=== PATIENT | male | born 1965 | race Caucasian/White ===

== ENCOUNTER 2018-04-18 13:18 | Emergency (ER) | payer MEDICAID, SELFPAY ==
[2018-04-18] VITALS (69 sets, daily range): BP systolic 90–168; BP diastolic 50–116; PULSE 73–100; RESP 11–23; TEMP 37.4; O2SAT 85–98
[2018-04-18] MEDS: MORPHine 10 MG/ML VIAL (13:32)
--- NOTE | 2018-04-18 13:35 | W.ED.GENAD ---
Discharge Plan Disposition Patient Disposition: HOME Condition: Stable Discharge Details Chief Complaint: Chest Pain Clinical Impression: Headache, Back pain, Extremity pain, Chest pain Primary Care Provider: Benitez Dave ED Provider: Leonarda Villegas Home Meds and New Rx's Prescriptions: Continued atorvastatin [Lipitor] 20 MG tablet 20 mg PO .QHS RF: 0 clopidogrel [Plavix] 75 MG tablet 75 mg PO DAILY RF: 0 aspirin [Aspir-81] 81 MG tablet,delayed release (DR/EC) 162 mg PO DAILY RF: 0 citalopram 20 MG tablet 20 mg PO .QHS RF: 0 omeprazole 20 MG capsule,delayed release(DR/EC) 20 mg PO QAM RF: 0 fluticasone [Flovent HFA] 120 PUFF HFA aerosol inhaler 1 puff Inhalation BID RF: 0 metoprolol succinate 25 MG tablet extended release 24 hr 25 mg PO BID RF: 0 albuterol sulfate [ProAir RespiClick] 90 MCG aerosol powdr breath activated 2 puff Inhalation .[id number] PRNRF: 0 metoprolol tartrate 25 MG tablet 25 mg PO BID RF: 0 Discharge Instructions Instructions: Chest Pain (ED), Back Pain (ED), General Headache (ED) Additional Instructions: Please return immediately to the emergency department if you develop any new or worsening symptoms or if you become otherwise concerned it is extremely important that you make an appointment to be seen in follow up by your primary care doctor within the next 48 hours in follow-up for this visit. Referrals: Benitez Dave [Primary Care Provider] - Discharge Data Discharge Date/Time-TO BE ENTERED AT DEPARTURE: 04/18/18 19:58 Medical Decision Making Meño Castro is a 52-year-old man with history of asthma, GERD, high cholesterol, coronary artery disease status post stents who presented to the emergency department complaining of sharp 10 out of 10 pain that began in his lower back, radiated up into his neck, also radiated to left knee and left wrist. Also with mild chest tightness and concurrent headache typical of his usual headaches. On exam patient appears uncomfortable and anxious but nontoxic. Benign cardiopulmonary exam. Benign neurologic exam. Patient with risk factors for vascular disease, this time concern for aortic pathology, ACS, metabolic/lyte derangement versus other. Doubt PE, SAH. Exam/history not consistent with sepsis, CVA. Plan for CTA brain neck, thorax/abdomen, EKG, screening labs, IV fluid, telemetry, IV pain medication. Will monitor. CTAs personally visualized by me, interpretation conjunction with radiology: CTA OF HEAD AND NECK: CT angiography was performed with multi slice acquisition and multi planar and 3D reconstruction. NECK: The exam is mildly limited by motion. There is mild calcific plaque at both common carotid bulbs. There is no significant internal carotid artery stenosis. The right vertebral artery is dominant. There is no evidence of dissection. IMPRESSION: Mild calcific plaque at the common carotid bulbs. HEAD: The [place] of [place] vasculature appears intact. No stenosis, dissection or occlusion is seen. There is no visible aneurysm. IMPRESSION: Negative CTA of the head. CT ANGIOGRAPHY OF THE CHEST, ABDOMEN AND PELVIS: CT angiography was performed with multi slice acquisition and multi planar and 3D reconstruction. There is no evidence of aneurysm or dissection. The pulmonary arteries are suboptimally opacified; however, no filling defects are seen. There are no pleural or pericardial effusions or evidence of a focal infiltrate or pulmonary edema. The liver shows fatty infiltration. The gallbladder, spleen, adrenals, pancreas and kidneys are unremarkable. There are bilateral renal cysts. The appendix appears normal. There is no bowel dilatation or inflammatory change. There is no free fluid. There is a small fatty-containing left inguinal hernia. The bladder is unremarkable. The prostate appears normal in size. IMPRESSION: No acute abnormality is seen in the chest, abdomen or pelvis. CTAs reported as negative. Pt feeling somewhat improved. Labs non-diagnostic. Given chest tightness and h/o CAD, plan for repeat trop and EKG. Pt denies current chest pain. Pt re-evaluated with his present, who reports that symptoms are not atypical for Pt. She reports that Pt has been having low back pain, neck pain, wrist and knee pain for months, and she is concerned that Pt may have had some worsening of his chronic pain symptoms and become anxious, prompting him to come to the ED. Pt agrees that he felt quite anxious, and his pain has subsided. Now only with mild low back pain that is at baseline for him and is positional lying in the bed. Pt's requests flu swab for generalized joint aches and body aches that pt has been complaining for past few days. Unclear etiology of symptoms at this time. Resolution of symptoms, patient is agreement that symptoms have been more long-standing and did not start suddenly this a.m., no persistent headache, chest tightness nonexertional, other emergent workup for ACS, subarachnoid hemorrhage not indicated. Will send flu. Flu neg. Repeat trop, EKG okay. Patient continues to report feeling rather well and ready for discharge. Lengthy discussion with Pt and with is re: RTED precautions, home care, and importance of outpt f/u [facility] with PCP. They verbalized understanding of the plan and are amenable. Medical Records Medical records reviewed: Yes I reviewed the patient's medical records. Lab Data Lab results reviewed: Yes I reviewed the patient's lab results. ECG Data Attestation: I personally reviewed and interpreted this ECG (s) as follows: Interpretation: EKG #1 shows sinus rhythm at 93, left bundle branch block, does not meet sgarbossa criteria for STEMI EKG #2 shows sinus rhythm at 77, left bundle branch block does not meet sgarbossa criteria for HPI General Mode of arrival: ambulatory. Date/Time Provider Initiated Documentation: 04/18/18 13:21. Limitations to Documentation: no limitations. Information obtained by: patient, RN notes reviewed and old records reviewed. HPI Narrative: Meño Castro is a 52-year-old man with history of CABG, high cholesterol, GERD, asthma presenting to the emergency department with multiple complaints. Patient reports that earlier today he was cooking when he developed sudden onset low back pain, radiating into his left knee. he reports that he rapidly then developed neck pain, which radiated into his left wrist. Patient reports that somewhat concurrent with these symptoms, he also developed a feeling of chest tightness and headache. He reports that he has been having frequent recurrent headaches over the past month, and this headache is typical in location, quality, and severity, does not feel abnormal for him. He believes the headache was gradual onset. Patient reports that while his headache is very typical for him, his other symptoms are not. Patient reports that after onset of pain initially, he had a cigarette, but pain has seemed to persist. He reports that pain in his left upper and lower extremity is intermittent and stabbing. He reports that low back pain and neck pain is worse with movement, and also intermittent but currently occurring. Chest pain has been constant. He denies numbness/tingling, weakness, nausea/vomiting/diarrhea, vision changes, fever, cough. Has been eating and drinking normally. No recent travel, no other recent illness. Patient does report that he stopped taking his Eliquis and metoprolol 1 week ago, as he did not have money to pay for those prescriptions. Pain level 10/10. Related Data Home Medications Medication Instructions Recorded Confirmed albuterol sulfate [ProAir 2 puff INHALATION .[id number] PRN 11/21/15 03/29/16 RespiClick] aspirin [Aspir-81] 162 mg PO DAILY 11/21/15 03/29/16 atorvastatin [Lipitor] 20 mg PO .QHS 11/21/15 03/29/16 citalopram 20 mg PO .QHS 11/21/15 03/29/16 clopidogrel [Plavix] 75 mg PO DAILY 11/21/15 03/29/16 fluticasone [Flovent HFA] 1 puff INHALATION BID 11/21/15 03/29/16 metoprolol succinate 25 mg PO BID 11/21/15 11/21/15 omeprazole 20 mg PO QAM 11/21/15 03/29/16 metoprolol tartrate 25 mg PO BID 03/29/16 03/29/16 Allergies Allergy/AdvReac Type Severity Reaction Status Date / Time No Known Allergies Allergy Unverified 03/29/16 09:36 General Stated Complaint: Chest Pain DARIELA: 2 Review of Systems Review of Systems Constitutional: denies fevers Eyes: denies eye pain ENT: denies facial pain, dental pain, sore throat Cardiovascular: Reports chest pain, denies edema Respiratory: denies cough, reports mild SOB GI: denies abdominal pain, vomiting, diarrhea : denies flank pain MSK: reports back pain, neck pain, left knee and wrist pain Skin: denies rash Neuro: Reports headaches, denies numbness, weakness PFSH Social History Smoking and Tabacco status: Former Tobacco Use Exam Narrative Exam Narrative: Constitutional: well and [id number], appears uncomfortable and in distress HENT: head atraumatic, normocephalic normal inspection, mucous membranes moist Eyes: conjunctiva normal, sclera normal, pupils 3mm b/l Neck: no stridor, does not range 2/2 pain, trachea midline Chest: normal inspection Resp: normal work of breathing, LCTAB Cardio: normal rate, normal rhythm, no murmur appreciated GI: abdomen soft, non-tender, non-distended Back: normal inspection, no rash, NTTP Skin: warm, dry, normal color, no rash Neuro: alert, not altered, cylinder devalver 2-12 intact, motor 5/5 throughout, normal tone Ext: no edema, left wrist and knee NTTP/ROM not limited by pain Psych: normal mood, normal affect, normal behavior Course Vital Signs Temperature 37.4 C 04/18/18 13:15 Pulse 94 H 04/18/18 13:15 Respiratory Rate 12 04/18/18 13:15 Blood Pressure 168/84 H 04/18/18 13:15 Pulse Oximetry 96 04/18/18 13:15 Temperature 37.4 C 04/18/18 13:15 Temperature Source Skin 04/18/18 13:15 Pulse 94 H 04/18/18 13:15 Respiratory Rate 16 04/18/18 13:25 Respiratory Effort 04/18/18 13:28 Blood Pressure 168/84 H 04/18/18 13:15 Pulse Oximetry 96 04/18/18 13:15 Oxygen Delivery Method Room Air 04/18/18 13:15 Oxygen Flow Rate 0 04/18/18 13:15 Pain Level 6 04/18/18 13:15
[2018-04-18] MEDS: Ondansetron 4 MG/2 ML VIAL (13:39)
[2018-04-18] MEDS: Normal Saline Flush 10 ML SYR IVP ×2 (13:41→17:20)
[2018-04-18 13:44] LABS: Abs Immature Grans 0.03 k/cumm (0.0-0.09); Absolute Basophil Count 0.02 k/cumm (0.0-0.2); Absolute Monocyte Count 0.53 k/cumm (0.11-0.7); Basophils % 0.1; HCT 42.9 % (40.0-50.0); Immature Grans % 0.2; Lymphocytes % 10.9; Mean Corpuscular Hemoglobin 32.5 pg (27.0-33.0); Mean Corpuscular Volume 93.1 fL (80-95); Mean Platelet Volume 9.2 fL (8.0-11.0); Monocytes % 3.4; Neutrophils % 84.4; Platelet Count 236 x1000/uL (130-400); RBC 4.61 m/cumm (4.50-6.00); RBC Distribution Width 12.3 % (11.8-14.1); White Blood Cell Count 15.53 k/cumm (4.4-10.8)
[2018-04-18 13:48] LABS: Absolute Eosinophil Count 0.16 k/cumm (0.0-0.7); Absolute Lymphocyte Count 1.69 k/cumm (1.2-3.4); Absolute Neutrophil Count 13.11 k/cumm (1.2-6.7)
--- NOTE | 2018-04-18 13:50 | DI.CT_ITS ---
SYMPTOM/DIAGNOSIS: HEADACHE, NECK PAIN CTA OF HEAD AND NECK: CT angiography was performed with multi slice acquisition and multi planar and 3D reconstruction. NECK: The exam is mildly limited by motion. There is mild calcific plaque at both common carotid bulbs. There is no significant internal carotid artery stenosis. The right vertebral artery is dominant. There is no evidence of dissection. IMPRESSION: Mild calcific plaque at the common carotid bulbs. HEAD: The [place] vasculature appears intact. No stenosis, dissection or occlusion is seen. There is no visible aneurysm. IMPRESSION: Negative CTA of the head.
[2018-04-18 13:59] LABS: ALT 40 U/L (12-78); AST 24 U/L (15-37); Albumin 3.9 g/dL (3.4-5.0); Alkaline Phosphatase 85 U/L (46-116); Anion Gap 11.4 mmol/L (3-11); BUN 12 mg/dL (7-18); Bilirubin, Total 0.5 mg/dL (0.2-1.0); CO2 26.6 mmol/L (21.0-32.0); CREATININE 1.04 mg/dL (0.70-1.30); Calcium 9.4 mg/dL (8.5-10.1); Chloride 101 mmol/L (98-107); Glucose 129 mg/dL (70-100); Magnesium 1.7 mg/dL (1.8-2.4); Potassium 3.6 mmol/L (3.5-5.1); Sodium 139 mmol/L (136-145); Total Protein 7.2 g/dL (6.4-8.2)
[2018-04-18 14:01] LABS: Troponin I < 0.02 ng/mL (0.00-0.06)
[2018-04-18] MEDS: Omnipaque 350 MG/ML 100 ML BTL 75 ML IJ ×2 (14:04→14:06)
--- NOTE | 2018-04-18 14:05 | DI.CT_ITS ---
SYMPTOMS/DIAGNOSIS: BACK PAIN, CHEST PAIN CT ANGIOGRAPHY OF THE CHEST, ABDOMEN AND PELVIS: CT angiography was performed with multi slice acquisition and multi planar and 3D reconstruction. There is no evidence of aneurysm or dissection. The pulmonary arteries are suboptimally opacified; however, no filling defects are seen. There are no pleural or pericardial effusions or evidence of a focal infiltrate or pulmonary edema. The liver shows fatty infiltration. The gallbladder, spleen, adrenals, pancreas and kidneys are unremarkable. There are bilateral renal cysts. The appendix appears normal. There is no bowel dilatation or inflammatory change. There is no free fluid. There is a small fatty-containing left inguinal hernia. The bladder is unremarkable. The prostate appears normal in size. IMPRESSION: No acute abnormality is seen in the chest, abdomen or pelvis.
--- NOTE | 2018-04-18 14:54 | DI.VRAD_ITS ---
EXAM: CT Angiography Head With Contrast EXAM DATE/TIME: 04/18/2018 1:25 PM CLINICAL HISTORY: 52 years old, male; Pain; Headache; Patient HX: Headache, and neck pain TECHNIQUE: Axial computed tomographic angiography images of the head with intravenous contrast using CT angiography protocol. MIP reconstructed images were created and reviewed. CONTRAST: 75 ml of omnipaque 350 administered intravenously. COMPARISON: No relevant prior studies available. FINDINGS: Right internal carotid artery: Unremarkable. Intracranial segment is patent with no significant stenosis. No aneurysm. Right anterior cerebral artery: Unremarkable. No occlusion or significant stenosis. No aneurysm. Right middle cerebral artery: Unremarkable. No occlusion or significant stenosis. No aneurysm. Right posterior cerebral artery: Unremarkable. No occlusion or significant stenosis. No aneurysm. Right vertebral artery: Unremarkable. No occlusion or significant stenosis. No aneurysm. Left internal carotid artery: Unremarkable. Intracranial segment is patent with no significant stenosis. No aneurysm. Left anterior cerebral artery: Unremarkable. No occlusion or significant stenosis. No aneurysm. Left middle cerebral artery: Unremarkable. No occlusion or significant stenosis. No aneurysm. Left posterior cerebral artery: Unremarkable. No occlusion or significant stenosis. No aneurysm. Left vertebral artery: Unremarkable. No occlusion or significant stenosis. No aneurysm. Basilar artery: Unremarkable. No occlusion or significant stenosis. No aneurysm. HEAD: Dental: The patient is edentulous. IMPRESSION: No evidence for acute intracranial vascular abnormality. EXAM: CT Angiography Neck With Contrast EXAM DATE/TIME: 04/18/2018 1:25 PM CLINICAL HISTORY: 52 years old, male; Pain; Headache; Patient HX: Headache, and neck pain TECHNIQUE: Axial computed tomographic angiography images of the neck with intravenous contrast using CT angiography protocol. All CT scans at this facility use at least one of these dose optimization techniques: automated exposure control; mA and/or kV adjustment per patient size (includes targeted exams where dose is matched to clinical indication); or iterative reconstruction. MIP reconstructed images were created and reviewed. COMPARISON: No relevant prior studies available. FINDINGS: VASCULATURE: Right common carotid artery: Normal. No significant stenosis. No dissection or occlusion. Right internal carotid artery: There is mild medial ectasia of the right ICA. Right external carotid artery: Normal. No occlusion or significant stenosis. Right vertebral artery: Right vertebral artery dominant. The distal left vertebral artery is atretic. Left common carotid artery: Normal. No significant stenosis. No dissection or occlusion. Left internal carotid artery: Minimal plaque proximal left ICA. Left external carotid artery: Normal. No occlusion or significant stenosis. Left vertebral artery: See Right Vertebral Artery Finding. Other vasculature: Respiratory motion slightly limits the exam. NECK: Bones/joints: Status post median sternotomy. Soft tissues: Normal. No significant soft tissue swelling. IMPRESSION: No evidence for hemodynamically significant stenosis. Distal left vertebral artery is atretic, anatomic variant. COMMENT: Preliminary interpretation is based on receipt of 440 image(s). A final report will be issued subsequently. Reference per NASCET criteria for degree of stenosis: Mild: <50% stenosis. Moderate: 50-69% stenosis. Severe: 70-94% stenosis. Near occlusion: 95-99% stenosis. Dictated and Authenticated by: Lupe Savage MD. Ordering:OLGA Brower MD
--- NOTE | 2018-04-18 14:56 | DI.VRAD_ITS ---
EXAM: CT Angiography Chest With Contrast EXAM DATE/TIME: 04/18/2018 1:24 PM CLINICAL HISTORY: 52 years old, male; Pain; Other: Back pain and chest pain. ; Abdominal pain; Other: Back pain. ; Patient HX: Back pain and neck pain. Patient sts with contrast injection did not feel contrast going down right leg. TECHNIQUE: Axial computed tomographic angiography images of the chest with intravenous contrast using CT angiography protocol. All CT scans at this facility use at least one of these dose optimization techniques: automated exposure control; mA and/or kV adjustment per patient size (includes targeted exams where dose is matched to clinical indication); or iterative reconstruction. MIP reconstructed images were created and reviewed. CONTRAST: 75 ml of omnipaque 350 administered intravenously. COMPARISON: No relevant prior studies available. FINDINGS: Pulmonary arteries: Normal. No pulmonary emboli. Aorta: Normal. No aortic aneurysm. No aortic dissection. Lungs: There is mild bibasilar atelectasis. Pleural space: Normal. No pneumothorax. No pleural effusion. Heart: Normal. No cardiomegaly. No pericardial effusion. Lymph nodes: Unremarkable. No enlarged lymph nodes. Bones/joints: Status post median sternotomy. Soft tissues: Unremarkable. IMPRESSION: No evidence for pulmonary embolus. EXAM: CT Angiography Abdomen and Pelvis With Contrast EXAM DATE/TIME: 04/18/2018 1:24 PM CLINICAL HISTORY: 52 years old, male; Pain; Other: Back pain and chest pain. ; Abdominal pain; Other: Back pain. ; Patient HX: Back pain and neck pain. Patient sts with contrast injection did not feel contrast going down right leg. TECHNIQUE: Axial computed tomographic angiography images of the abdomen and pelvis with intravenous contrast material, including non-contrast images if performed. MIP and/or 3D reconstructed images were created and reviewed. All CT scans at this facility use at least one of these dose optimization techniques: automated exposure control; mA and/or kV adjustment per patient size (includes targeted exams where dose is matched to clinical indication); or iterative reconstruction. COMPARISON: No relevant prior studies available. FINDINGS: VASCULATURE: Aorta: There is infrarenal abdominal aortic ectasia. Maximum diameter 2.8 cm. Celiac trunk and mesenteric arteries: No occlusion or significant stenosis. Renal arteries: No occlusion or significant stenosis. Right iliac arteries: No occlusion or significant stenosis. Right femoral/popliteal arteries: No occlusion or significant stenosis of the imaged proximal femoral artery. The popliteal artery was not imaged. Left iliac arteries: No occlusion or significant stenosis. Left femoral/popliteal arteries: No occlusion or significant stenosis of the imaged proximal femoral artery. The popliteal artery was not imaged. ABDOMEN: Liver: Fatty, slightly enlarged liver. Gallbladder and bile ducts: Gallbladder incompletely distended. Pancreas: Unremarkable. No mass. No ductal dilation. Spleen: Heterogeneous splenic enhancement noted consistent with dynamic bolus. Adrenals: Unremarkable. No mass. Kidneys and ureters: Left renal cyst. Stomach and bowel: Unremarkable. No obstruction. No mucosal thickening. Appendix: No evidence of appendicitis. PELVIS: Bladder: Unremarkable. No mass. Reproductive: Unremarkable as visualized. ABDOMEN and PELVIS: Intraperitoneal space: Unremarkable. No free air. No significant fluid collection. Bones/joints: No acute fracture. No dislocation. Soft tissues: Small, fat-containing left inguinal hernia. Lymph nodes: Unremarkable. No enlarged lymph nodes. IMPRESSION: No evidence for acute abnormality. Mild aortic ectasia. COMMENT: Preliminary interpretation is based on receipt of [id number] image(s). A final report will be issued subsequently. Dictated and Authenticated by: Lupe Savage MD. Ordering:OLGA Brower MD
[2018-04-18] MEDS: Normal Saline 500 ML IV (17:18)
--- NOTE | 2018-04-18 17:18 | ED.GENADUL_ITS ---
Discharge Plan Disposition Patient Disposition: HOME Condition: Stable Discharge Details Chief Complaint: Chest Pain Clinical Impression: Headache, Back pain, Extremity pain, Chest pain Primary Care Provider: Benitez Dave ED Provider: Leonarda Villegas Home Meds and New Rx's Prescriptions: Continued atorvastatin [Lipitor] 20 MG tablet 20 mg PO .QHS RF: 0 clopidogrel [Plavix] 75 MG tablet 75 mg PO DAILY RF: 0 aspirin [Aspir-81] 81 MG tablet,delayed release (DR/EC) 162 mg PO DAILY RF: 0 citalopram 20 MG tablet 20 mg PO .QHS RF: 0 omeprazole 20 MG capsule,delayed release(DR/EC) 20 mg PO QAM RF: 0 fluticasone [Flovent HFA] 120 PUFF HFA aerosol inhaler 1 puff Inhalation BID RF: 0 metoprolol succinate 25 MG tablet extended release 24 hr 25 mg PO BID RF: 0 albuterol sulfate [ProAir RespiClick] 90 MCG aerosol powdr breath activated 2 puff Inhalation .[id number] PRNRF: 0 metoprolol tartrate 25 MG tablet 25 mg PO BID RF: 0 Discharge Instructions Instructions: Chest Pain (ED), Back Pain (ED), General Headache (ED) Additional Instructions: Please return immediately to the emergency department if you develop any new or worsening symptoms or if you become otherwise concerned it is extremely important that you make an appointment to be seen in follow up by your primary care doctor within the next 48 hours in follow-up for this visit. Referrals: Benitez Dave [Primary Care Provider] - Discharge Data Discharge Date/Time-TO BE ENTERED AT DEPARTURE: 04/18/18 19:58 Medical Decision Making Meño Castro is a 52-year-old man with history of asthma, GERD, high cholesterol, coronary artery disease status post stents who presented to the emergency department complaining of sharp 10 out of 10 pain that began in his lower back, radiated up into his neck, also radiated to left knee and left wrist. Also with mild chest tightness and concurrent headache typical of his usual headaches. On exam patient appears uncomfortable and anxious but nontoxic. Benign cardiopulmonary exam. Benign neurologic exam. Patient with risk factors for vascular disease, this time concern for aortic pathology, ACS, metabolic/lyte derangement versus other. Doubt PE, SAH. Exam/history not consistent with sepsis, CVA. Plan for CTA brain neck, thorax/abdomen, EKG, screening labs, IV fluid, telemetry, IV pain medication. Will monitor. CTAs personally visualized by me, interpretation conjunction with radiology: CTA OF HEAD AND NECK: CT angiography was performed with multi slice acquisition and multi planar and 3D reconstruction. NECK: The exam is mildly limited by motion. There is mild calcific plaque at both common carotid bulbs. There is no significant internal carotid artery stenosis. The right vertebral artery is dominant. There is no evidence of dissection. IMPRESSION: Mild calcific plaque at the common carotid bulbs. HEAD: The [place] vasculature appears intact. No stenosis, dissection or occlusion is seen. There is no visible aneurysm. IMPRESSION: Negative CTA of the head. CT ANGIOGRAPHY OF THE CHEST, ABDOMEN AND PELVIS: CT angiography was performed with multi slice acquisition and multi planar and 3D reconstruction. There is no evidence of aneurysm or dissection. The pulmonary arteries are suboptimally opacified; however, no filling defects are seen. There are no pleural or pericardial effusions or evidence of a focal infiltrate or pulmonary edema. The liver shows fatty infiltration. The gallbladder, spleen, adrenals, pancreas and kidneys are unremarkable. There are bilateral renal cysts. The ap pendix appears normal. There is no bowel dilatation or inflammatory change. There is no free fluid. There is a small fatty-containing left inguinal hernia. The bladder is unremarkable. The prostate appears normal in size. IMPRESSION: No acute abnormality is seen in the chest, abdomen or pelvis. CTAs reported as negative. Pt feeling somewhat improved. Labs non-diagnostic. Given chest tightness and h/o CAD, plan for repeat trop and EKG. Pt denies current chest pain. Pt re-evaluated with his present, who reports that symptoms are not atypical for Pt. She reports that Pt has been having low back pain, neck pain, wrist and knee pain for months, and she is concerned that Pt may have had some worsening of his chronic pain symptoms and become anxious, prompting him to come to the ED. Pt agrees that he felt quite anxious, and his pain has subsided. Now only with mild low back pain that is at baseline for him and is positional lying in the bed. Pt's requests flu swab for generalized joint aches and body aches that pt has been complaining for past few days. Unclear etiology of symptoms at this time. Resolution of symptoms, patient is agreement that symptoms have been more long-standing and did not start suddenly this a.m., no persistent headache, chest tightness nonexertional, other emergent workup for ACS, subarachnoid hemorrhage not indicated. Will send flu. Flu neg. Repeat trop, EKG okay. Patient continues to report feeling rather well and ready for discharge. Lengthy discussion with Pt and with is re: RTED precautions, home care, and importance of outpt f/u [facility] with PCP. They verbalized understanding of the plan and are amenable. Medical Records Medical records reviewed: Yes I reviewed the patient's medical records. Lab Data Lab results reviewed: Yes I reviewed the patient's lab results. ECG Data Attestation: I personally reviewed and interpreted this ECG (s) as follows: Interpretation: EKG #1 shows sinus rhythm at 93, left bundle branch block, does not meet sgarbossa criteria for STEMI EKG #2 shows sinus rhythm at 77, left bundle branch block does not meet sgarbossa criteria for HPI General Mode of arrival: ambulatory . Date/Time Provider Initiated Documentation: 04/18/18 13:21 . Limitations to Documentation: no limitations . Information obtained by: patient, RN notes reviewed and old records reviewed . HPI Narrative: Meño Castro is a 52-year-old man with history of CABG, high cholesterol, GERD, asthma presenting to the emergency department with multiple complaints. Patient reports that earlier today he was cooking when he developed sudden onset low back pain, radiating into his left knee. he reports that he rapidly then developed neck pain, which radiated into his left wrist. Patient reports that somewhat concurrent with these symptoms, he also developed a feeling of chest tightness and headache. He reports that he has been having frequent recurrent headaches over the past month, and this headache is typical in location, quality, and severity, does not feel abnormal for him. He believes the headache was gradual onset. Patient reports that while his headache is very typical for him, his other symptoms are not. Patient reports that after onset of pain initially, he had a cigarette, but pain has seemed to persist. He reports that pain in his left upper and lower extremity is intermittent and stabbing. He reports that low back pain and neck pain is worse with movement, and also intermittent but currently occurring. Chest pain has been constant. He denies numbness/tingling, weakness, nausea/vomiting/diarrhea, vision changes, fever, cough. Has been eating and drinking normally. No recent travel, no other recent illness. Patient does report that he stopped taking his Eliquis and metoprolol 1 week ago, as he did not have money to pay for those prescriptions. Pain level 10/10. Related Data Home Medications Medication Instructions Recorded Confirmed albuterol sulfate [ProAir 2 puff INHALATION .[id number] PRN 11/21/15 03/29/16 RespiClick] aspirin [Aspir-81] 162 mg PO DAILY 11/21/15 03/29/16 atorvastatin [Lipitor] 20 mg PO .QHS 11/21/15 03/29/16 citalopram 20 mg PO .QHS 11/21/15 03/29/16 clopidogrel [Plavix] 75 mg PO DAILY 11/21/15 03/29/16 fluticasone [Flovent HFA] 1 puff INHALATION BID 11/21/15 03/29/16 metoprolol succinate 25 mg PO BID 11/21/15 11/21/15 omeprazole 20 mg PO QAM 11/21/15 03/29/16 metoprolol tartrate 25 mg PO BID 03/29/16 03/29/16 Allergies Allergy/AdvReac Type Severity Reaction Status Date / Time No Known Allergies Allergy Unverified 03/29/16 09:36 General Stated Complaint: Chest Pain DARIELA: 2 Review of Systems Review of Systems Constitutional: denies fevers Eyes: denies eye pain ENT: denies facial pain, dental pain, sore throat Cardiovascular: Reports chest pain, denies edema Respiratory: denies cough, reports mild SOB GI: denies abdominal pain, vomiting, diarrhea : denies flank pain MSK: reports back pain, neck pain, left knee and wrist pain Skin: denies rash Neuro: Reports headaches, denies numbness, weakness PFSH Social History Smoking and Tabacco status: Former Tobacco Use Exam Narrative Exam Narrative: Constitutional: well and [id number], appears uncomfortable and in distress HENT: head atraumatic, normocephalic normal inspection, mucous membranes moist Eyes: conjunctiva normal, sclera normal, pupils 3mm b/l Neck: no stridor, does not range 2/2 pain, trachea midline Chest: normal inspection Resp: normal work of breathing, LCTAB Cardio: normal rate, normal rhythm, no murmur appreciated GI: abdomen soft, non-tender, non-distended Back: normal inspection, no rash, NTTP Skin: warm, dry, normal color, no rash Neuro: alert, not altered, trade mark attorney 2-12 intact, motor 5/5 throughout, normal tone Ext: no edema, left wrist and knee NTTP/ROM not limited by pain Psych: normal mood, normal affect, normal behavior Course Vital Signs Temperature 37.4 C 04/18/18 13:15 Pulse 94 H 04/18/18 13:15 Respiratory Rate 12 04/18/18 13:15 Blood Pressure 168/84 H 04/18/18 13:15 Pulse Oximetry 96 04/18/18 13:15 Temperature 37.4 C 04/18/18 13:15 Temperature Source Skin 04/18/18 13:15 Pulse 94 H 04/18/18 13:15 Respiratory Rate 16 04/18/18 13:25 Respiratory Effort 04/18/18 13:28 Blood Pressure 168/84 H 04/18/18 13:15 Pulse Oximetry 96 04/18/18 13:15 Oxygen Delivery Method Room Air 04/18/18 13:15 Oxygen Flow Rate 0 04/18/18 13:15 Pain Level 6 04/18/18 13:15
[2018-04-18] MEDS: diphenhydrAMINE 50 MG/ML VIAL 25 MG IVP (17:19)
[2018-04-18] MEDS: Prochlorperazine 10 MG/2 ML VIAL IVP (17:19)
[2018-04-18 18:16] LABS: Troponin I < 0.02 ng/mL (0.00-0.06)
== END 2018-04-18 19:58 | disposition home or self-care (01) ==
PROVIDERS: Emergency Provider Student in an Organized Health Care Education/Training Program; PCP Family Medicine
DX: M54.5 Low back pain (principal); M54.2 Cervicalgia; R51 Headache; R07.9 Chest pain, unspecified
CPT/HCPCS: 36415; 70496; 70498; 71275; 74177; 80053; 87449; 93005; 96361; 96374; 96375; 99285; 83735; 84484; 85025; 93010; 99284; J0780; J1200; J2270; J2405; J3490

== ENCOUNTER 2019-11-25 13:48 | Emergency (ER) | payer MEDICAID, SELFPAY ==
[2019-11-25 13:57] VITALS: BP 142/83; PULSE 95; RESP 16; TEMP 36.8; O2SAT 94
--- NOTE | 2019-11-25 14:00 | DI.CT_ITS ---
EXAM: CT HEAD WO CLINICAL HISTORY: pain s/p fall. TECHNIQUE: Imaging Protocol: Axial computed tomography images with coronal and sagittal reformatted images were created and reviewed COMPARISON: No exams were available for comparison FINDINGS: Ventricles and Extra axial spaces: Normal in size and morphology for the patient's age. Hemorrhage: None. Cerebral parenchyma: Normal. Midline shift: None. Brainstem/Cerebellum: Normal. Calvarium: Normal. Visualized Paranasal sinuses/Mastoids: Clear. Soft Tissues: Unremarkable. IMPRESSION: No acute intracranial process. RADIATION DOSE DELIVERED: Total DLP DATA REPOSITORY: All CT scans at this facility are submitted to the National Radiology Data Registry (NRDR) Dose Index Registry (DIR) with the [employer] (ACR). RADIATION OPTIMIZATION: All CT scans at this facility use at least one of these dose optimization te chniques: automated exposure control; mA and/or kV adjustment per patient size (includes targeted exa ms where dose is matched to clinical indication); or iterative reconstruction.
--- NOTE | 2019-11-25 14:15 | ED.GENADUL_ITS ---
Discharge Plan Disposition Patient Disposition: HOME Condition: Stable Discharge Details Clinical Impression: Contusion of right shoulder, Head injury Primary Care Provider: Dary Amaya ED Provider: Brennon Rasmussen Home Meds and New Rx's Prescriptions: Continued atorvastatin [Lipitor] 20 MG tablet 20 mg PO .QHS RF: 0 citalopram 20 MG tablet 20 mg PO .QHS RF: 0 omeprazole 20 MG capsule,delayed release(DR/EC) 20 mg PO QAM RF: 0 Flovent HFA 120 PUFF HFA aerosol inhaler 1 puff Inhalation BID RF: 0 albuterol sulfate [ProAir RespiClick] 90 MCG aerosol powdr breath activated 2 puff Inhalation .[id number] PRNRF: 0 metoprolol tartrate 25 MG tablet 25 mg PO BID RF: 0 diltiazem HCl 30 mg tablet 30 mg PO DAILY RF: 0 duloxetine 30 mg capsule,delayed release(DR/EC) PO DAILY RF: 0 Eliquis 5 mg tablet PO BID RF: 0 lisinopril 10 mg tablet 10 mg PO DAILY RF: 0 folic acid 1 mg tablet 1 mg PO DAILY RF: 0 gabapentin 100 mg capsule 200 mg PO DAILY RF: 0 oxycodone 5 mg tablet 5 mg PO DIRECTED PRNRF: 0 Discharge Instructions Additional Instructions: your xray did not show any broken bones and your replaced joint is well aligned follow up with your surgeon as scheduled if you have severe worsening pain, difficulty breathing or feel more ill return to the emergency department Medical Decision Making 54 yo male with hx of afib on eliquis, cad s/p cabg, who 8 days ago at [facility] underwent right shoulder replacement comes in after earlier today sat on a plastic chair at a [facility] [employer] [facility] [employer] and a leg snapped on the chair and he fell on his right shoulder on the groud and hit his head on a car. Denies loc, no chest pain.pressure, no dyspnea, no abdominal pain. HAs no neck pain with full rom and no midline neck pain. HAs pain in proximal right shoulder without erythema or warmth, intact distal sensation and pulses. Suspect contusion of the shoulder but will xray to evaluate for fx/dislocation. Given he has a headache and is on eliquis will also obtain ct of his head. xray shows no dislocation or fracture, has a small fracture of old clavicle screws, ct head negative. No new pain and only has tenderness with palpation of the shoulder, suspect contusion, will d/c home with return precautions Differential Diagnosis Differential Diagnosis: contusion, tbi, fracture Imaging Data Radiologic Study: Attestation: I personally reviewed and interpreted this imaging study as follows: Imaging: X-Ray Radiologist's impression: There are 2 screws seen in the acromion which appear to extend across an os acromiale. There is a fracture of 1 of the screws, of indeterminate age. No [place] fracture is seen.. There is mild spurring of the AC joint. The patient is status post placement of a right total shoulder prosthesis. The components appear well aligned. There is small amount of residual air over the surgical site. There is no evidence of an acute fracture. Radiologic Study #2: Attestation: I personally reviewed and interpreted this imaging study as follows: Imaging: CT Scan Radiologist's impression: ct head negative HPI General Mode of arrival: ambulatory . Date/Time Provider Initiated Documentation: 11/25/19 13:49 . Limitations to Documentation: no limitations . Information obtained by: patient . History of Present Illness 54 year old M presents to the emergency department with the chief complaint of right shoulder pain, and it has been constant. Rest improves symptom(s), Movement worsens symptoms . Patient did receive the following treatments prior to arrival, none Related Data Home Medications Medication Instructions Recorded Confirmed Flovent HFA 1 puff INHALATION BID 11/21/15 11/25/19 albuterol sulfate [ProAir 2 puff INHALATION .[id number] PRN 11/21/15 03/29/16 RespiClick] atorvastatin [Lipitor] 20 mg PO .QHS 11/21/15 11/25/19 citalopram 20 mg PO .QHS 11/21/15 03/29/16 omeprazole 20 mg PO QAM 11/21/15 11/25/19 metoprolol tartrate 25 mg PO BID 03/29/16 11/25/19 Eliquis mg PO BID 11/25/19 diltiazem HCl 30 mg PO DAILY 11/25/19 11/25/19 duloxetine mg PO DAILY 11/25/19 folic acid 1 mg PO DAILY 11/25/19 11/25/19 gabapentin 200 mg PO DAILY 11/25/19 11/25/19 lisinopril 10 mg PO DAILY 11/25/19 11/25/19 oxycodone 5 mg PO DIRECTED PRN 11/25/19 11/25/19 Allergies Allergy/AdvReac Type Severity Reaction Status Date / Time No Known Allergies Allergy Unverified 11/25/19 14:03 General Stated Complaint: Orthopedic DARIELA: 3 Review of Systems All systems reviewed & are unremarkable except as noted in HPI and below Constitutional Constitutional: Denies chills, Denies fever(s) and Denies weakness Cardiovascular Cardiovascular: Denies chest pain and Denies dyspnea Respiratory Respiratory: Denies cough and Denies dyspnea Gastrointestinal Gastrointestinal: Denies abdominal pain, Denies nausea and Denies vomiting Musculoskeletal Musculoskeletal: Denies joint swelling Neurologic Neurologic: Denies weakness [facility] Social History Smoking/Tobacco Use Status: Former Tobacco Use Alcohol Intake: current Alcohol Intake frequency: holidays/special occasions only Drug use: Never Substance use type: does not use Do you feel safe at home: Yes Do you feel safe in your relationship?: Yes Exam Const General: no acute distress Orientation: alert HENMT Head: normal to inspection Ears: external ears normal General nose exam: external nose normal Mouth: moist mucous membranes Eyes General: appearance normal, both eyes and all related structures Neck Neck: normal visual inspection Resp Effort & Inspection: normal respiratory effort and able to speak in complete sentences Cardio Rate: regular rate Skin General skin exam: elasticity normal Neuro General: patient alert and patient oriented x3 Extrem General: normal to inspection Psych Mental Status: mental status grossly normal Course Vital Signs Vital signs: Vital Signs Temperature 36.8 C 11/25/19 13:57 Pulse 95 H 11/25/19 13:57 Respiratory Rate 16 11/25/19 13:57 Blood Pressure 142/83 H 11/25/19 13:57 Pulse Oximetry 94 L 11/25/19 13:57 Temperature 36.8 C 11/25/19 13:57 Temperature Source Tympanic 11/25/19 13:57 Pulse 95 H 11/25/19 13:57 Respiratory Rate 16 11/25/19 13:57 Respiratory Effort Non-Labored 11/25/19 13:57 Blood Pressure 142/83 H 11/25/19 13:57 Blood Pressure Position Sitting 11/25/19 13:57 Pulse Oximetry 94 L 11/25/19 13:57 Oxygen Delivery Method Room Air 11/25/19 13:57 Oxygen Flow Rate 0 11/25/19 13:57 Pain Level 9 11/25/19 13:57
--- NOTE | 2019-11-25 14:56 | DI.RAD_ITS ---
EXAM: XR SHOULDER RT COMPLETE 2+V INDICATION: pain s/p fall, 8 days post op replacement. COMPARISON: None TECHNIQUE: 2D digital imaging was performed. FINDINGS: There are 2 screws seen in the acromion which appear to extend across an os acromiale. There is a fr acture of 1 of the screws, of indeterminate age. No [place] fracture is seen.. There is mild spur ring of the AC joint. The patient is status post placement of a right total shoulder prosthesis. Th e components appear well aligned. There is small amount of residual air over the surgical site. The re is no evidence of an acute fracture. DATA REPOSITORY: RADIATION DOSE DELIVERED:
[2019-11-25 15:56] VITALS: BP 155/82; PULSE 91; RESP 15; TEMP 36.6; O2SAT 97
== END 2019-11-25 15:51 | disposition home or self-care (01) ==
PROVIDERS: Emergency Provider Emergency Medicine; PCP Nurse Practitioner Family
DX: S40.011A Contusion of right shoulder, initial encounter (principal); S09.8XXA Other specified injuries of head, initial encounter; W07.XXXA Fall from chair, initial encounter; Z47.1 Aftercare following joint replacement surgery; Z96.611 Presence of right artificial shoulder joint; Z79.01 Long term (current) use of anticoagulants; I48.91 Unspecified atrial fibrillation
CPT/HCPCS: 99284; 70450; 73030

== ENCOUNTER 2020-10-29 11:40 | Emergency (ER) | payer MEDICAID, SELFPAY ==
[2020-10-29 11:45] VITALS: BP 158/94; PULSE 90; RESP 18; TEMP 36.5; O2SAT 97
--- NOTE | 2020-10-29 11:56 | W.ED.GENAD ---
Discharge Plan Disposition Patient Disposition: HOME Condition: Stable Discharge Details Clinical Impression: Sinusitis Primary Care Provider: Dary Amaya ED Provider: Brennon Rasmussen [place] Meds and New Rx's Prescriptions: New amoxicillin-pot clavulanate [Augmentin] 875-125 mg tablet 1 tab PO BID Qty: 14 RF: 0 Continued atorvastatin [Lipitor] 20 MG tablet 20 mg PO .QHS RF: 0 citalopram 20 MG tablet 20 mg PO .QHS RF: 0 omeprazole 20 MG capsule,delayed release(DR/EC) 20 mg PO QAM RF: 0 Flovent HFA 120 PUFF HFA aerosol inhaler 1 puff Inhalation BID RF: 0 ProAir RespiClick 90 MCG aerosol powdr breath activated 2 puff Inhalation .[id number] PRNRF: 0 metoprolol tartrate 25 MG tablet 25 mg PO BID RF: 0 diltiazem HCl 30 mg tablet 30 mg PO DAILY RF: 0 duloxetine 30 mg capsule,delayed release(DR/EC) 30 mg PO DAILY RF: 0 Eliquis 5 mg tablet 5 mg PO BID RF: 0 lisinopril 10 mg tablet 10 mg PO DAILY RF: 0 folic acid 1 mg tablet 1 mg PO DAILY RF: 0 gabapentin 100 mg capsule 200 mg PO DAILY RF: 0 oxycodone 5 mg tablet 5 mg PO DIRECTED PRNRF: 0 Discharge Instructions Instructions: Sinusitis (ED) Additional Instructions: you can try taking claritin or zyrtec in the morning and benadryl at bedtime as well if symptoms continue in a week follow up with your primary care provider return to the emergency department if you feel more ill, have difficulty breathing or inability to swallow liquids Medical Decision Making 55 yo male comes in with 10 days of sore throat as well as sinus congestion and pressure. HE denies fevers, chills, dyspnea, or difficulty swallowing and states he has been vaccinated for covid. He arrives speaking in full sentences and appears well. Has normal posterior pharynx, midline uvula, no submandibular swelling, pain over the hyoid or restricted neck movements, no findings on exam to suggest retropharyngeal abscess, epiglotitis, or peritonsilar abscess. He does have pain with percussion over the sinuses. I suspect sinusitis, given 10 days of symptoms will start augmentin and advised to try antihistamines. Advised to f/u with pcp and return precautions given Differential Diagnosis Differential Diagnosis: sinusitis, pharyngitis HPI General Mode of arrival: ambulatory. Date/Time Provider Initiated Documentation: 10/29/20 11:50. Limitations to Documentation: no limitations. Information obtained by: patient. History of Present Illness 55 year old M presents to the emergency department with the chief complaint of sore throat, described as mild, Patient started experiencing this day(s) (10) and it has been constant. No relieving factors improve symptom(s), No exacerbating factors reported . Patient notes denies fever/chills. Patient did receive the following treatments prior to arrival, none Related Data Home Medications Medication Instructions Recorded Confirmed Flovent HFA 1 puff INHALATION BID 11/21/15 10/29/20 ProAir RespiClick 2 puff INHALATION .[id number] PRN 11/21/15 10/29/20 atorvastatin [Lipitor] 20 mg PO .QHS 11/21/15 10/29/20 citalopram 20 mg PO .QHS 11/21/15 10/29/20 omeprazole 20 mg PO QAM 11/21/15 10/29/20 metoprolol tartrate 25 mg PO BID 03/29/16 10/29/20 Eliquis 5 mg PO BID 11/25/19 10/29/20 diltiazem HCl 30 mg PO DAILY 11/25/19 10/29/20 duloxetine 30 mg PO DAILY 11/25/19 10/29/20 folic acid 1 mg PO DAILY 11/25/19 10/29/20 gabapentin 200 mg PO DAILY 11/25/19 10/29/20 lisinopril 10 mg PO DAILY 11/25/19 10/29/20 oxycodone 5 mg PO DIRECTED PRN 11/25/19 11/25/19 amoxicillin-pot clavulanate 1 tab PO BID #14 tab 10/29/20 [Augmentin] Previous Rx's Medication Instructions Recorded amoxicillin-pot clavulanate 1 tab PO BID #14 tab 10/29/20 [Augmentin] Allergies Allergy/AdvReac Type Severity Reaction Status Date / Time No Known Allergies Allergy Unverified 10/29/20 11:47 General Stated Complaint: Sorethroat DARIELA: 4 Review of Systems All systems reviewed & are unremarkable except as noted in HPI and below Constitutional Constitutional: Denies chills, Denies fever(s) and Denies weakness ENT Ears, Nose, Mouth, and Throat: Denies change in voice Cardiovascular Cardiovascular: Denies chest pain and Denies dyspnea Respiratory Respiratory: Denies cough and Denies dyspnea Gastrointestinal Gastrointestinal: Denies abdominal pain, Denies nausea and Denies vomiting Musculoskeletal Musculoskeletal: Denies joint swelling Neurologic Neurologic: Denies weakness [facility] Social History Smoking/Tobacco Use Status: Former Tobacco Use Smoking risk assessment performed?: Yes Alcohol Intake: current Alcohol Intake frequency: holidays/special occasions only Drug use: Never Substance use type: does not use Do you feel safe at home: Yes Do you feel safe in your relationship?: Yes Exam Const General: no acute distress Orientation: alert HENMT Head: normal to inspection Ears: external ears normal General nose exam: external nose normal Mouth: moist mucous membranes Eyes General: appearance normal, both eyes and all related structures Neck Neck: normal visual inspection Resp Effort & Inspection: normal respiratory effort and able to speak in complete sentences Cardio Rate: regular rate Skin General skin exam: no rashes or lesions noted Neuro General: patient alert and patient oriented x3 Extrem General: normal to inspection Psych Mental Status: mental status grossly normal Course Vital Signs Vital signs: Vital Signs Temperature 36.5 C 10/29/20 11:45 Pulse 90 10/29/20 11:45 Respiratory Rate 18 10/29/20 11:45 Blood Pressure 158/94 H 10/29/20 11:45 Pulse Oximetry 97 10/29/20 11:45 Temperature 36.5 C 10/29/20 11:45 Temperature Source Temporal Artery Scan 10/29/20 11:45 Pulse 90 10/29/20 11:45 Respiratory Rate 18 10/29/20 11:45 Respiratory Effort Non-Labored 10/29/20 11:51 Blood Pressure 158/94 H 10/29/20 11:45 Blood Pressure Position Sitting 10/29/20 11:45 Pulse Oximetry 97 10/29/20 11:45 Oxygen Delivery Method Room Air 10/29/20 11:45 Oxygen Flow Rate 0 10/29/20 11:45 Pain Level 8 10/29/20 11:45
== END 2020-10-29 12:03 | disposition home or self-care (01) ==
LOC: ER 12:06
PROVIDERS: Emergency Provider Emergency Medicine; PCP Nurse Practitioner Family
DX: J01.80 Other acute sinusitis (principal)
CPT/HCPCS: 99283

== ENCOUNTER 2021-04-23 16:27 | Emergency (ER) | payer MEDICAID, SELFPAY ==
--- NOTE | 2021-04-23 16:37 | ED.GENADUL_ITS ---
Discharge Plan Disposition Patient Disposition: HOME Condition: Stable Discharge Details Clinical Impression: Acute gout of knee Primary Care Provider: Dary Amaya ED Provider: Gwendolyn Ivy Home Meds and New Rx's Prescriptions: New prednisone 20 mg tablet 40 mg PO DAILY 4 Days Qty: 8 RF: 0 Continued atorvastatin [Lipitor] 20 MG tablet 20 mg PO .QHS RF: 0 citalopram 20 MG tablet 20 mg PO .QHS RF: 0 omeprazole 20 MG capsule,delayed release(DR/EC) 20 mg PO QAM RF: 0 Flovent HFA 120 PUFF HFA aerosol inhaler 1 puff Inhalation BID RF: 0 ProAir RespiClick 90 MCG aerosol powdr breath activated 2 puff Inhalation .[id number] PRNRF: 0 metoprolol tartrate 25 MG tablet 25 mg PO BID RF: 0 diltiazem HCl 30 mg tablet 30 mg PO DAILY RF: 0 duloxetine 30 mg capsule,delayed release(DR/EC) 30 mg PO DAILY RF: 0 Eliquis 5 mg tablet 5 mg PO BID RF: 0 lisinopril 10 mg tablet 10 mg PO DAILY RF: 0 folic acid 1 mg tablet 1 mg PO DAILY RF: 0 gabapentin 100 mg capsule 200 mg PO DAILY RF: 0 oxycodone 5 mg tablet 5 mg PO DIRECTED PRNRF: 0 amoxicillin-pot clavulanate [Augmentin] 875-125 mg tablet 1 tab PO BID Qty: 14 RF: 0 Discharge Instructions Instructions: Gout (ED) Additional Instructions: Your x-ray is reassuring here today. No evidence of fracture. However, your labs, history and exam point to gout flare of your right knee. To help with discomfort, please encourage rest, ice, elevation. You may use Tylenol to help with discomfort. Please take the steroids as prescribed to help with your gout flareup. This may elevate your sugars some. You are given a dose of prednisone today, your next dose will be tomorrow. As we discussed, to help prevent this in the future, please encourage frequent water intake. Please processed meats and cheeses- see attached information for more on dietary changes. Please see attached information on dietary changes to help prevent gout in the future. Please follow-up with your primary care in 1 week for reevaluation. If you develop fever/chills, increased pain, increased swelling or other new/worsening symptoms please seek care urgently once again. Referrals: Dary Amaya [Primary Care Provider] - Discharge Data Discharge Date/Time-TO BE ENTERED AT DEPARTURE: 04/23/21 18:12 Medical Decision Making Patient is a pleasant 57-year-old gentleman presenting to complaint of right knee pain. States that he was snowblowing on Friday but denies any pain or injury at that time. However, he will Friday morning with severe right knee pain. States the pain is primarily anterior. Has not had any fevers or chills. Again, no history of trauma. Has not had any surgery or injury to this historically. States that the pain has progressively been increasing and is having discomfort with ambulation and minimal activity such as his pant leg brushing against his knee. Past medical history for asthma, depression, GERD, HTN with obstruction, cardiac catheterization. Patient does report that he is anticoagulated. Denies any calf pain. Denies any sensory changes in his lower extremity. On exam, patient appears nontoxic. He is ambulated with an antalgic gait. He does appear very uncomfortable. I did not note any objective trauma. No erythema, effusion or warmth. Patient is exquisitely tender, even with light touch over the anterior aspect of his knee. Full flexion, extension does cause increased pain anteriorly but patient is able to do so. Ligametously intact with varus and valgus stress testing as well as anterior/posterior drawer testing. Diffusely tender along joint line anteriorly, maximal along patellar tendon. Calf is soft and nontender. No edema or palpable cord. 2+ distal pulses. 5/5 strength distally, full ROM of ankle. No thigh pain. Concerned primarily for tendonitis, particularly with location and onset after shoveling. However, he is so equistely tender and has predisposing factors for gout. This also came on over the night, pain with clothing touching the knee. Also considered crystal arthropathy. I do not see indication of septic arthritis at this time. No enlarged bursa. No signficant effusion. Will obtain XR to evaluate for any bony pathology as well as baseline blood work including uric acid and inflammatory markers. FINDINGS: Bones/joints: There is no evidence of acute fracture.There is no evidence of malalignment or dislocation. Soft tissues: Normal. IMPRESSION: There is no evidence of acute fracture.There is no evidence of malalignment or dislocation. Plan significant for elevated CRP 0.68. Uric acid is also elevated 0.3. ESR within normal limits, no leukocytosis. I discussed the findings with the patient. I advised that I am concerned for gout. On further medication, the patient found that he had very little fluid intake on Friday, day prior to the onset of symptoms. He also ate processed meat and cheeses for dinner. His further increases my concern for gout. Patient has history, will treat with steroids. Will do 40 mg p.o. daily. We discussed SE, in particular risk of eleation of glucose. Pt has hx of DM, not insulin dependent. I encourage hydration. We did discuss dietary changes prevent this in the future. Return precautions were discussed. Encourage close follow-up with primary care. We did discuss pain management. All questions and concerns were addressed and he is agreement with this plan. HPI General Mode of arrival: ambulatory . Date/Time Provider Initiated Documentation: 04/23/21 16:36 . Limitations to Documentation: no limitations . Information obtained by: patient and RN notes reviewed . History of Present Illness 55 year old M presents to the emergency department with the chief complaint of Right knee pain, described as severe, with intensity rated at 9. Quality is described as stabbing, and is localized to the right and lower extremity. Patient extremity (Reports he can radiate along tibia inferiorly). Patient started experiencing this day(s) and it has been constant. Immobilization improves symptom(s), Movement worsens symptoms . Patient notes no other symptoms.. Patient did receive the following treatments prior to arrival, none Related Data Home Medications Medication Instructions Recorded Confirmed Flovent HFA 1 puff INHALATION BID 11/21/15 10/29/20 ProAir RespiClick 2 puff INHALATION .[id number] PRN 11/21/15 10/29/20 atorvastatin [Lipitor] 20 mg PO .QHS 11/21/15 10/29/20 citalopram 20 mg PO .QHS 11/21/15 10/29/20 omeprazole 20 mg PO QAM 11/21/15 10/29/20 metoprolol tartrate 25 mg PO BID 03/29/16 10/29/20 Eliquis 5 mg PO BID 11/25/19 10/29/20 diltiazem HCl 30 mg PO DAILY 11/25/19 10/29/20 duloxetine 30 mg PO DAILY 11/25/19 10/29/20 folic acid 1 mg PO DAILY 11/25/19 10/29/20 gabapentin 200 mg PO DAILY 11/25/19 10/29/20 lisinopril 10 mg PO DAILY 11/25/19 10/29/20 oxycodone 5 mg PO DIRECTED PRN 11/25/19 11/25/19 amoxicillin-pot clavulanate 1 tab PO BID #14 tab 10/29/20 [Augmentin] prednisone 40 mg PO DAILY 4 Days #8 tab 04/23/21 Previous Rx's Medication Instructions Recorded amoxicillin-pot clavulanate 1 tab PO BID #14 tab 10/29/20 [Augmentin] prednisone 40 mg PO DAILY 4 Days #8 tab 04/23/21 Allergies Allergy/AdvReac Type Severity Reaction Status Date / Time No Known Allergies Allergy Unverified 10/29/20 11:47 General DARIELA: 4 Review of Systems Constitutional Constitutional: Reports as per HPI, Denies chills, Denies fever(s), Denies headache(s) and Denies weakness ENT Ears, Nose, Mouth, and Throat: Denies headache(s) Cardiovascular Cardiovascular: Reports as per HPI Respiratory Respiratory: Reports as per HPI and Denies cough Musculoskeletal Musculoskeletal: Reports as per HPI and Denies tingling Integumentary/Breasts Skin/Breast: Reports as per HPI, Denies rash and Denies wounds Neurologic Neurologic: Reports as per HPI, Denies headache(s), Denies tingling, Denies paresthesias and Denies weakness PFSH All Active Problems (Updated 04/23/21 @ 18:03 by BENITO Thomson) Sinusitis (Acute) Acute gout of knee (Acute) Social History Smoking/Tobacco Use Status: Former Tobacco Use Smoking risk assessment performed?: Yes Alcohol Intake: current Alcohol Intake frequency: holidays/special occasions only Drug use: Never Substance use type: does not use Do you feel safe at home: Yes Do you feel safe in your relationship?: Yes Exam Const General: cooperative, healthy appearing, uncomfortable, no acute distress, well developed and well groomed Nutritional Appearance: well nourished and obese Orientation: alert and awake Resp Effort & Inspection: normal respiratory effort, able to speak in complete sentences and no respiratory distress Cardio Rate: regular rate Rhythm: regular rhythm Skin General skin exam: no rashes or lesions noted Lesions: no lesions Rashes: no rashes Trauma: no lacerations or abrasions Neuro General: patient alert and patient awake Cognition: normal cognition Speech: speech normal Gait: antalgic Motor: muscle tone normal throughout Sensory Exam: no sensory deficits noted Extrem Knee images: 1. Area of maximal discomfort. Patient has difficulty with extension secondary to discomfort. Full flexion. 2+ distal pulses. Sensation is intact. Able to flex and extend ankle swelling and stiffness with no Psych Appearance: grossly normal and well kempt Mental Status: mental status grossly normal Speech and Movement: speech and movement normal
[2021-04-23 16:43] VITALS: BP 176/102; PULSE 98; RESP 18; TEMP 36.7; O2SAT 97
--- NOTE | 2021-04-23 16:45 | DI.RAD_ITS ---
Exam(s) XR KNEE RT 4V AP,LAT,JAKOB,PAT EXAM: XR KNEE RT 4V AP,LAT,JAKOB,PAT CLINICAL HISTORY: pain over patella and patellar tendon. TECHNIQUE: 2D digital imaging was performed of the right knee. Four views obtained. AP, lateral, Me rchant and PA tunnel views were obtained. COMPARISON: No exams were available for comparison FINDINGS: BONES: No acute fracture is present. No bony destructive lesion is seen. JOINTS: The knee is normally aligned. No joint effusion is seen. SOFT TISSUE: Normal. IMPRESSION: Unremarkable radiographs of the right knee. DATA REPOSITORY: RADIATION DOSE DELIVERED:
[2021-04-23] MEDS: Acetaminophen 500 MG TAB 1000 MG PO (17:14)
[2021-04-23 17:16] LABS: HCT 43.6 % (40.0-50.0); HGB 14.5 g/dL (13.5-17.5); MCH 32.6 pg (27.0-33.0); MCHC 33.3 % (32.0-36.0); MPV 8.7 fL (8.0-11.0); Platelet Count 226 10^3/uL (130-400); RBC 4.45 10^6/uL (4.36-5.78); RDW 12.2 % (11.8-14.1); RDW-SD 44.2 fL; WBC 9.06 10^3/uL (4.4-10.8)
[2021-04-23 17:18] LABS: ESR 11 mm/hr (0-20)
[2021-04-23 17:25] LABS: Anion Gap 12.1 mmol/L (3-11); BUN 12 mg/dL (7-18); CO2 25.9 mmol/L (21.0-32.0); CREATININE 1.1 mg/dL (0.70-1.30); Calcium 9.2 mg/dL (8.5-10.1); Chloride 104 mmol/L (98-107); Glucose 145 mg/dL (74-106); Potassium 3.9 mmol/L (3.5-5.1); Sodium 142 mmol/L (136-145)
[2021-04-23 17:28] LABS: C-Reactive Protein 0.68 mg/dL (0.0-0.3); Uric Acid 8.3 mg/dL (3.5-7.2)
--- NOTE | 2021-04-23 17:50 | DI.VRAD_ITS ---
PROCEDURE INFORMATION: Exam: XR Left Knee Exam date and time: 04/23/2021 4:51 PM Age: 55 years old Clinical indication: Patient HX: Right knee pain over patella and patella tendon, no trauma TECHNIQUE: Imaging protocol: XR Left knee. Views: 4 or more views. COMPARISON: No relevant prior studies available. FINDINGS: Bones/joints: There is no evidence of acute fracture.There is no evidence of malalignment or dislocation. Soft tissues: Normal. IMPRESSION: There is no evidence of acute fracture.There is no evidence of malalignment or dislocation. Dictated and Authenticated by: Sally Potts MD. Ordering:GABRIELLE Snow MD
[2021-04-23] MEDS: predniSONE 20 MG TAB 40 MG PO (18:09)
== END 2021-04-23 18:12 | disposition home or self-care (01) ==
PROVIDERS: Emergency Provider Physician Assistant; PCP Nurse Practitioner Family
DX: M10.061 Idiopathic gout, right knee (principal)
CPT/HCPCS: 80048; 85027; 85652; 99283; 73564; 84550; 86140; J7512

== ENCOUNTER 2021-06-26 22:47 | Outpatient (CLI) | payer MEDICAID, SELFPAY ==
--- NOTE | 2021-06-26 14:50 | DI.RAD_ITS ---
Exam(s) XR LUMBAR SPINE COMPLETE EXAM: XR LUMBAR SPINE COMPLETE CLINICAL HISTORY: ACUTE LBP, M54.59; MEDICATION MONITORING. TECHNIQUE: 2D digital imaging was performed of the lumbar spine. Five images were obtained. AP, la teral, right oblique, left oblique and L5-S1 spot views were obtained. COMPARISON: No exams were available for comparison FINDINGS: BONES: No fracture or destructive lesion. Endplate osteophytes are seen throughout the lumbar spine. Degenerative changes of the facets are seen from L3-4 through L5-S1. DISKS: There is disc space narrowing at L4-5 and L5-S1. ALIGNMENT: Lumbar spinal alignment is within normal limits. No spondylolysis or spondylolisthesis. SOFT TISSUE: Atherosclerosis is present. There does appear to be a 4 cm distal abdominal aortic aneu rysm. IMPRESSION: 1. [id number] degenerative changes in the lumbar spine. 2. Findings of a 4 cm distal abdominal aortic aneurysm. Abdominal ultrasound should be considered fo r further evaluation. DATA REPOSITORY: RADIATION DOSE DELIVERED:
--- NOTE | 2021-06-26 14:51 | DI.RAD_ITS ---
Exam(s) XR SACRUM EXAM: XR SACRUM CLINICAL HISTORY: ACUTE LBP, M54.59; MEDICATION MONITORING, Z51.81. TECHNIQUE: 2D digital imaging was performed. COMPARISON: No exams were available for comparison FINDINGS: BONES: No acute fracture is present. No bony destructive lesion is seen. JOINTS: No dislocation present. Mild degenerative changes are seen at the sacroiliac joints. SOFT TISSUE: Normal. IMPRESSION: Mild degenerative changes seen at the sacroiliac joints. DATA REPOSITORY: RADIATION DOSE DELIVERED:
== END 2021-06-26 23:07 ==
PROVIDERS: PCP Nurse Practitioner Family; Visit Provider Nurse Practitioner Family
DX: Z51.81 Encounter for therapeutic drug level monitoring (principal); M47.818 Spondylosis without myelopathy or radiculopathy, sacral and sacrococcygeal region; M47.816 Spondylosis without myelopathy or radiculopathy, lumbar region; I71.4 Abdominal aortic aneurysm, without rupture
CPT/HCPCS: 72110; 72220

== ENCOUNTER 2022-04-02 08:32 | Outpatient (CLI) | payer MEDICAID, SELFPAY ==
[2022-04-02 09:13] LABS: Abs Immature Grans 0.03 10^3/uL (0.0-0.06); Absolute Basophil Count 0.07 10^3/uL (0.0-0.2); Absolute Eosinophil Count 0.16 10^3/uL (0.0-0.7); Absolute Lymphocyte Count 2.61 10^3/uL (1.2-3.4); Absolute Neutrophil Count 4.49 10^3/uL (1.2-6.7); Basophils % 0.9; HCT 45.4 % (40.0-50.0); HGB 15.4 g/dL (13.5-17.5); Immature Grans % 0.4; Lymphocytes % 32.4; MCH 33.3 pg (27.0-33.0); MCHC 33.9 % (32.0-36.0); MCV 98 fL (80-95); MPV 8.9 fL (8.0-11.0); Monocytes % 8.7; Neutrophils % 55.6; Platelet Count 273 10^3/uL (130-400); RBC 4.63 10^6/uL (4.36-5.78); RDW 13.2 % (11.8-14.1); RDW-SD 47.7 fL; WBC 8.06 10^3/uL (4.4-10.8)
[2022-04-02 09:32] LABS: ALT 33 U/L (16-63); AST 26 U/L (15-37); Albumin 3.7 g/dL (3.4-5.0); Alkaline Phosphatase 83 U/L (46-116); BUN 17 mg/dL (7-18); Bilirubin, Total 0.3 mg/dL (0.2-1.0); C-Reactive Protein 0.37 mg/dL (0.0-0.3); CREATININE 1.1 mg/dL (0.70-1.30); Calcium 9.4 mg/dL (8.5-10.1); Chloride 101 mmol/L (98-107); Glucose 140 mg/dL (74-106); Potassium 4.2 mmol/L (3.5-5.1); Sodium 135 mmol/L (136-145); Total Protein 7.6 g/dL (6.4-8.2); Uric Acid 7.2 mg/dL (3.5-7.2)
== END 2022-04-02 08:33 | disposition home or self-care (01) ==
LOC: LBO 08:33
PROVIDERS: PCP Nurse Practitioner Family; Visit Provider Internal Medicine Rheumatology
DX: M10.9 Gout, unspecified (principal); L40.50 Arthropathic psoriasis, unspecified; Z79.899 Other long term (current) drug therapy
CPT/HCPCS: 36415; 80053; 84550; 85025; 86140

== ENCOUNTER 2022-08-06 01:18 | Outpatient (CLI) | payer MEDICAID, SELFPAY ==
--- NOTE | 2022-08-06 08:22 | DI.RAD_ITS ---
Exam(s) XR KNEE LT 3V AP,LAT,JAKOB EXAM: XR KNEE LT 3V AP,LAT,JAKOB CLINICAL HISTORY: CHRONIC PAIN OF BOTH KNEES, M25.561, M25.562. TECHNIQUE: 2D digital imaging was performed of the left knee. Three images were obtained. AP, late ral and PA tunnel views were obtained. COMPARISON: No priors for comparison. FINDINGS: BONES: No acute fracture is present. No bony destructive lesion is seen. JOINTS: The knee is normally aligned. No joint effusion is seen. SOFT TISSUE: Normal. IMPRESSION: Normal radiographs of the left knee. DATA REPOSITORY: RADIATION DOSE DELIVERED:
--- NOTE | 2022-08-06 08:22 | DI.RAD_ITS ---
Exam(s) XR KNEE RT 3V AP,LAT,JAKOB EXAM: XR KNEE RT 3V AP,LAT,JAKOB CLINICAL HISTORY: CHRONIC PAIN OF BOTH KNEES, M25.561, M25.562. TECHNIQUE: 2D digital imaging was performed of the right knee. Three views obtained. AP, lateral an d PA tunnel views were obtained. COMPARISON: CR XR KNEE LT 3V AP,LAT,JAKOB from 08/06/2022 FINDINGS: BONES: No acute fracture is present. No bony destructive lesion is seen. JOINTS: The knee is normally aligned. There is a small joint effusion. The joint spaces are well kristal ntained. SOFT TISSUE: Normal. IMPRESSION: Small joint effusion. DATA REPOSITORY: RADIATION DOSE DELIVERED:
== END 2022-08-06 01:38 ==
LOC: DI 01:19
PROVIDERS: PCP Nurse Practitioner Family; Visit Provider Internal Medicine Rheumatology
DX: M25.561 Pain in right knee (principal); M25.562 Pain in left knee
CPT/HCPCS: 73562

== ENCOUNTER 2022-08-25 14:38 | Emergency (ER) | payer MEDICAID, SELFPAY ==
[2022-08-25] VITALS (7 sets, daily range): BP systolic 122–136; BP diastolic 58–73; PULSE 78–86; RESP 14–26; TEMP 36.5; O2SAT 94–96
--- NOTE | 2022-08-25 14:45 | DI.CT_ITS ---
Exam(s) CT ABDOMEN PELVIS W EXAM: CT ABDOMEN PELVIS W CLINICAL HISTORY: abd pain TECHNIQUE: Imaging Protocol: Axial computed tomography images with coronal and sagittal reformatted images were created and reviewed CONTRAST MATERIAL: Intravenous: There 1 contrast volume:100 mL Oral: No COMPARISON: CT CT thorax abd/pel CTA from 04/18/2018 FINDINGS: ABDOMEN: Lung Bases: Coronary artery calcifications are present. There is dependent atelectasis. Liver: There is diffuse decreased attenuation of the liver consistent with fatty infiltration. No me asurable mass. Portal, Superior Mesenteric, and Splenic Veins: Unremarkable. Gallbladder and Biliary Tract: No radiodense calculus or dilation. Pancreas: Normal density, no abnormal calcifications or inflammatory process. Spleen: Normal. Adrenals: No masses seen. Kidneys: Normal size, contour and axis. No radiodense stones or obstructive uropathy. There is a simp le cysts seen in the left kidney. No follow-up is recommended. Abdominal Aorta: There is ectasia of the infrarenal abdominal aorta measuring 2.9 x 2.9 cm. Atherosc lerosis. Bowel: No obstruction or bowel wall thickening. Appendix is unremarkable. Peritoneal Cavity: No ascites, collection or mesenteric inflammatory response. No free air. Lymph Nodes: Within normal limits. Bones: Within normal limits for the patient's age. Soft Tissues: There is a fat containing left inguinal hernia. PELVIS: Bladder: Symmetric distention, no gross wall thickening. Reproductive Organs: Unremarkable as visualized. Lymph Nodes: Within normal limits. Bones: Within normal limits for the patient's age. IMPRESSION: 1. No acute abdominal or pelvic process. 2. Fatty infiltration of the liver. RADIATION DOSE DELIVERED: 1,422.71mGy.cm Total DLP DATA REPOSITORY: All CT scans at this facility are submitted to the National Radiology Data Registry (NRDR) Dose Index Registry (DIR) with the [employer] ([employer]). RADIATION OPTIMIZATION: All CT scans at this facility use at least one of these dose optimization te chniques: automated exposure control; mA and/or kV adjustment per patient size (includes targeted exa ms where dose is matched to clinical indication); or iterative reconstruction.
--- NOTE | 2022-08-25 14:54 | ED.GENADUL_ITS ---
Discharge Plan Discharge Details Chief Complaint: Abd Prob Primary Care Provider: Dary Amaya ED Provider: Jamil Meyers Home Meds and New Rx's Prescriptions: No Action allopurinol 100 mg tablet 50 mg PO DAILY cyanocobalamin (vitamin B-12) 1,000 mcg tablet 1,000 mcg PO DAILY cyclobenzaprine 10 mg tablet 10 mg PO HS duloxetine 60 mg capsule,delayed release(DR/EC) 60 mg PO DAILY gabapentin 300 mg capsule 300 mg PO BID ixekizumab 80 mg/mL auto-injector 80 mg subcut Q4W lisinopril 20 mg tablet 20 mg PO DAILY methotrexate sodium 2.5 mg tablet 15 mg PO QWEEK omeprazole 40 mg capsule,delayed release(DR/EC) 40 mg PO DAILY Praluent Pen 75 mg/mL pen injector 75 mg subcut Q14D citalopram 20 MG tablet 20 mg PO .QHS fluticasone propionate [Flovent HFA] 120 PUFF HFA aerosol inhaler 1 puff Inhalation BID ProAir RespiClick 90 MCG aerosol powdr breath activated 2 puff Inhalation .[id number] PRN metoprolol tartrate 25 MG tablet 25 mg PO BID diltiazem HCl 30 mg tablet 30 mg PO DAILY Patient Comments: TAKE ONE TABLET BY MOUTH EVERY DAY Eliquis 5 mg tablet 5 mg PO BID Patient Comments: TAKE ONE TABLET BY MOUTH TWICE A DAY folic acid 1 mg tablet 1 mg PO DAILY Patient Comments: TAKE 1 TABLET BY MOUTH ONCE DAILY Medical Decision Making 57-year-old presents to the emergency room with right-sided abdominal pain. This happened during some strenuous work on a car. Blood work within normal limits. CT scan did not reveal any intra-abdominal pathology. This appears to be more muscular wall related. HPI General Date/Time Provider Initiated Documentation: 08/25/22 14:39 . HPI Narrative: 57-year-old presents to the emergency room for evaluation of right-sided abdominal wall pain. States he was working on a car doing some strenuous work when he felt like a tear on his abdominal wall. The pain shoots from the groin all the way up to the right upper quadrant. Not associated with any nausea or vomiting. No fever no chills. Related Data Home Medications Medication Instructions Recorded Confirmed albuterol sulfate 90 mcg/actuation 2 puff inhalation .[id number] PRN 11/21/15 08/25/22 breath activated powder inhaler (ProAir RespiClick) citalopram 20 mg tablet 20 mg PO .QHS 11/21/15 08/25/22 fluticasone propionate 220 1 puff inhalation BID 11/21/15 08/25/22 mcg/actuation HFA aerosol inhaler (Flovent HFA) metoprolol tartrate 25 mg tablet 25 mg PO BID 03/29/16 08/25/22 apixaban 5 mg tablet (Eliquis) 5 mg PO BID 11/25/19 08/25/22 diltiazem HCl 30 mg tablet 30 mg PO DAILY 11/25/19 08/25/22 folic acid 1 mg tablet 1 mg PO DAILY 11/25/19 08/25/22 alirocumab 75 mg/mL subcutaneous 75 mg subcut Q14D 08/07/22 08/25/22 pen injector (Praluent Pen) allopurinol 100 mg tablet 50 mg PO DAILY 08/07/22 08/25/22 cyanocobalamin (vitamin B-12) 1,000 mcg PO DAILY 08/07/22 08/25/22 1,000 mcg tablet cyclobenzaprine 10 mg tablet 10 mg PO HS 08/07/22 08/25/22 duloxetine 60 mg capsule,delayed 60 mg PO DAILY 08/07/22 08/25/22 release gabapentin 300 mg capsule 300 mg PO BID 08/07/22 08/25/22 ixekizumab 80 mg/mL subcutaneous 80 mg subcut Q4W 08/07/22 08/25/22 auto-injector lisinopril 20 mg tablet 20 mg PO DAILY 08/07/22 08/25/22 methotrexate sodium 2.5 mg tablet 15 mg PO QWEEK 08/07/22 08/25/22 omeprazole 40 mg capsule,delayed 40 mg PO DAILY 08/07/22 08/25/22 release Allergies Allergy/AdvReac Type Severity Reaction Status Date / Time No Known Allergies Allergy Unverified 08/25/22 14:49 General Stated Complaint: Abd Prob DARIELA: 3 Review of Systems Narrative: 10 point review of system is negative unless otherwise specified in HPI PFSH All Active Problems (Updated 08/07/22 @ 11:50 by Stephanie Buck RN) Tobacco use (Acute) SAVANA (obstructive sleep apnea) (Chronic) Psoriatic arthritis (Acute) Mixed hyperlipidemia (Acute) Hypertrophic cardiomyopathy (Acute) Essential hypertension (Acute) CAD (coronary artery disease) (Chronic) Afib (Chronic) AAA (abdominal aortic aneurysm) (Acute) Sinusitis (Acute) Medical History (Updated 08/07/22 @ 11:50 by Stephanie Buck RN) GERD (gastroesophageal reflux disease) Gout Major depressive disorder Social History Smoking/Tobacco Use Status: Current every day Smoking risk assessment performed?: Yes Alcohol Intake: current Alcohol Intake frequency: a few times a month Drug use: Never Substance use type: does not use Do you feel safe at home: Yes Do you feel safe in your relationship?: Yes Exam Narrative Exam Narrative: General: A,A Ox3, Calm, no apparent distress, well developed, pleasant and cooperative Head Size/Shape: normocephalic, atraumatic Eyes Pupils: PERRLA Extraocular Mobility: intact and symmetrical Conjunctiva: non-injected, anicteric, no discharge Ears, Nose, Throat Nares: patent bilaterally Oral Cavity: moist Neck: supple Respiratory Respiratory Effort: no dyspnea Auscultation: clear to auscultation bilaterally, normal breath sounds, no wheezing, no rales/crackles Cardiovascular Heart Auscultation: regular rate and rhythm, normal S1, normal S2, no murmurs, no rubs, no gallops, Pulse Quality: +2 equal bilaterally, location(s) Abdomen Inspection and Palpation: soft, diffuse tenderness overlying the right side of his abdomen. The pain appears to be superficial. Non-distended, no hepatosplenomegaly Musculoskeletal System Joints, Bones, and Muscles: no deformities Extremities: warm and well-perfused, no cyanosis, capillary refill <2 seconds Skin Skin Inspection: no rash, no lesions, no bruising Neurological Motor: normal tone, normal strength, moving all extremities equally Psychiatric: good insight, good judgement, normal mood and affect Course Vital Signs Vital signs: Vital Signs Temperature 36.5 C 08/25/22 14:40 Pulse 86 08/25/22 14:40 Respiratory Rate 18 08/25/22 14:40 Blood Pressure 136/73 08/25/22 14:40 Pulse Oximetry 96 08/25/22 14:40 Temperature 36.5 C 08/25/22 14:40 Temperature Source Temporal Artery Scan 08/25/22 14:40 Pulse 86 08/25/22 14:40 Respiratory Rate 18 08/25/22 14:40 Respiratory Effort Normal, Non-Labored 08/25/22 14:44 Blood Pressure 136/73 08/25/22 14:40 Blood Pressure Position Sitting 08/25/22 14:40 Pulse Oximetry 96 08/25/22 14:40 Oxygen Delivery Method Room Air 08/25/22 14:40 Oxygen Flow Rate 0 08/25/22 14:40
[2022-08-25 15:03] LABS: Abs Immature Grans 0.03 10^3/uL (0.0-0.06); Absolute Basophil Count 0.07 10^3/uL (0.0-0.2); Absolute Eosinophil Count 0.17 10^3/uL (0.0-0.7); Absolute Lymphocyte Count 1.71 10^3/uL (1.2-3.4); Absolute Monocyte Count 0.53 10^3/uL (0.1-0.8); Absolute Neutrophil Count 4.09 10^3/uL (1.2-6.7); Basophils % 1.1; Eosinophils % 2.6; HCT 43.9 % (40.0-50.0); HGB 15.2 g/dL (13.5-17.5); Immature Grans % 0.5; Lymphocytes % 25.9; MCH 33.7 pg (27.0-33.0); MCHC 34.6 % (32.0-36.0); MCV 97 fL (80-95); MPV 8.7 fL (8.0-11.0); Neutrophils % 61.9; Platelet Count 209 10^3/uL (130-400); RBC 4.51 10^6/uL (4.36-5.78); RDW 12.8 % (11.8-14.1); RDW-SD 45.7 fL
[2022-08-25] MEDS: Normal Saline 1,000 ML 1000 ML IV (15:05)
[2022-08-25 15:19] LABS: ALT 50 U/L (16-63); AST 38 U/L (15-37); Albumin 3.9 g/dL (3.4-5.0); Alkaline Phosphatase 68 U/L (46-116); Anion Gap 8.9 mmol/L (3-11); BUN 12 mg/dL (7-18); Bilirubin, Total 0.5 mg/dL (0.2-1.0); CO2 25.1 mmol/L (21.0-32.0); Calcium 9.1 mg/dL (8.5-10.1); Chloride 102 mmol/L (98-107); Estimated GFR 87.24 (mL/min/1.73m2); Glucose 160 mg/dL (74-106); Magnesium 1.8 mg/dL (1.8-2.4); Potassium 3.7 mmol/L (3.5-5.1); Sodium 136 mmol/L (136-145); Total Protein 7.2 g/dL (6.4-8.2)
[2022-08-25] MEDS: Omnipaque 350 MG/ML 100 ML BTL IJ (15:47)
[2022-08-25] MEDS: Normal Saline - Diluent 50 ML VIAL IJ (15:51)
[2022-08-25] MEDS: Normal Saline Flush 10 ML SYR IVP (15:51)
--- NOTE | 2022-08-25 16:12 | DI.VRAD_ITS ---
PROCEDURE INFORMATION: Exam: CT Abdomen And Pelvis With Contrast Exam date and time: 08/25/2022 3:52 PM Age: 57 years old Clinical indication: Abdominal pain; Acute TECHNIQUE: Imaging protocol: Computed tomography of the abdomen and pelvis with contrast. Radiation optimization: All CT scans at this facility use at least one of these dose optimization techniques: automated exposure control; mA and/or kV adjustment per patient size (includes targeted exams where dose is matched to clinical indication); or iterative reconstruction. Contrast material: OMNIPAQUE 350; Contrast volume: 100 ml; Contrast route: INTRAVENOUS (IV); COMPARISON: CT thorax abd/pel CTA 04/18/2018 2:01 PM FINDINGS: Liver: The liver is enlarged and of decreased attenuation. There are no cysts or masses. Gallbladder and bile ducts: Normal. No calcified stones. No ductal dilation. Pancreas: The pancreas is normal. Spleen: The spleen is normal. Adrenal glands: The adrenal glands are normal. Kidneys and ureters: Simple 2.3 cm cyst in the posterior cortex of the left kidney and a smaller 1.5 cm simple cyst in the lower pole of the left kidney. Renal cortices are otherwise unremarkable. No hydronephrosis, nephrolithiasis or hydroureter. Stomach and bowel: Unremarkable. No obstruction. No mucosal thickening. Appendix: A normal appendix is identified. Intraperitoneal space: Unremarkable. No free air. No significant fluid collection. Vasculature: Fusiform dilatation of the infrarenal abdominal aorta to 2.8 cm. [id number] amount of plaque in the arteries. Lymph nodes: Unremarkable. No enlarged lymph nodes. Urinary bladder: Unremarkable as visualized. Reproductive: Unremarkable as visualized. Bones/joints: Unremarkable. No acute fracture. Soft tissues: Unremarkable. IMPRESSION: 1. No acute findings. 2. Enlarged and fatty infiltrated liver. 3. Fusiform dilatation of the infrarenal abdominal aorta. Dictated and Authenticated by: Alberto Lucas MD. Ordering:CHERISE Negron MD
== END 2022-08-25 16:45 | disposition home or self-care (01) ==
PROVIDERS: Emergency Provider Emergency Medicine; PCP Nurse Practitioner Family
DX: R10.31 Right lower quadrant pain (principal)
CPT/HCPCS: 36415; 80053; 96360; 96361; 99285; 74177; 83735; 85025; 99284; J3490

== ENCOUNTER 2022-10-21 03:02 | Outpatient (CLI) | payer MEDICAID, SELFPAY | END 2022-10-21 03:03 | disposition home or self-care (01) | LOC: RT 03:02 | PROVIDERS: PCP Nurse Practitioner Family; Visit Provider Nurse Practitioner | DX: G47.33 Obstructive sleep apnea (adult) (pediatric) (principal) | CPT/HCPCS: 94762 ==

== ENCOUNTER 2022-11-04 10:11 | Outpatient (CLI) | payer MEDICAID, SELFPAY ==
--- NOTE | 2022-11-04 09:30 | DI.RAD_ITS ---
Exam(s) XR HIP PELVIS ADULT BL EXAM: XR HIP PELVIS ADULT BL CLINICAL HISTORY: bilateral knee pain. TECHNIQUE: 2D digital imaging was performed of the pelvis and bilateral hips. Three images were obt ained. AP pelvis and lateral views of both hips were obtained. COMPARISON: No exams were available for comparison FINDINGS: BONES: No acute fracture is present. No bony destructive lesion is seen. JOINTS: No dislocation present. The joint spaces are well maintained. There is a well corticated oss eous density adjacent to the right acetabulum. The sacroiliac joints and symphysis pubis are unremar kable. SOFT TISSUE: Normal. IMPRESSION: No acute abnormality. DATA REPOSITORY: RADIATION DOSE DELIVERED:
== END 2022-11-04 10:12 | disposition home or self-care (01) ==
LOC: DIORS 10:11
PROVIDERS: PCP Nurse Practitioner Family; Referring Provider Nurse Practitioner Family; Visit Provider Physician Assistant
DX: M25.561 Pain in right knee (principal); M25.562 Pain in left knee
CPT/HCPCS: 73521

== ENCOUNTER → 2022-11-21 03:34 | Outpatient (CLI) | payer MEDICAID, SELFPAY ==
--- NOTE | 2022-11-21 09:45 | DI.MRI_ITS ---
Exam(s) MR LUMBAR SPINE WO EXAM: MR LUMBAR SPINE WO CLINICAL HISTORY: PAIN,DJD LUMBAR SPINE, M47.816, SPONDYLOSIS. TECHNIQUE: Multiplanar multisequence MRI of the Lumbar spine was performed. COMPARISON: CR XR LUMBAR SPINE COMPLETE from 06/26/[address] ABDOMEN PELVIS W from 08/25/2022 FINDINGS: There is transitional anatomy noted with a transitional lumbosacral vertebra evident. Conus medullaris is at normal level. There is no evidence of conus mass nor subjacent clumping of in trathecal nerve roots to suggest arachnoiditis. The distal thecal sac ends at what is L4-5 level on this study. There is no evidence of Tarlov intrasacral cysts nor other significant findings within t he sacral canal Bones:There are no fractures nor ominous osseous lesions in the lumbar vertebral bodies and visualize d sacrum. With respect to the individual levels... T11-T12: Annular bulging noted on the sagittal images which indents the thecal sac. This level is ab ove the axial image plain was not imaged in the axial plane. T12-L1: Unremarkable L1-2: Normal disc height and signal. No disc herniation nor central canal stenosis.No foraminal steno sis L2-3: Normal disc height. There is mild symmetrical annular bulging at this level without a distinct disc herniation. No central canal stenosis. There is no significant foraminal stenosis at this leve l. No significant facet arthropathy. L3-4: Normal disc height. Posteriorly there is broad annular bulging with a superimposed small centr al subligamentous disc protrusion which contacts the thecal sac. However, central canal dimensions a re within normal limits at this level. The annular bulging extends into the floor both exiting neura l foramina but there is no significant foraminal stenosis, this because of the preserved disc height at this level. There are mild degenerative changes in both facet joints L4-5: Mild disc height loss. There is mild degenerative anterolisthesis on the left side due to face t arthropathy. No prominent listhesis evident. There is some annular bulging but without a dominant disc herniation. Central canal dimensions are lower normal. There is no foraminal stenosis at this level. Thecal sac appears to end at this level. L5-S1: Normal disc height and signal. No disc herniation nor canal stenosis. No foraminal stenosis at this level. Mild-moderate degenerative changes facet joints Soft tissues: There is a fusiform aneurysm of the infrarenal abdominal aorta noted which measures ove r 3 cm diameter. Difficult to measure it size accurately on this study but this aneurysm probably sh ould be restudied at this time. Benign cyst also noted in the lateral cortex of the left kidney. IMPRESSION: 1. Mild multilevel findings as described individually above. 2. There is no prominent central canal stenosis nor prominent foraminal stenosis on either side in th e lumbosacral spine. 3. Multilevel facet arthropathy. There is very mild anterolisthesis L4 upon L5 related to facet arth ropathy. If clinically indicated flexion and extension lateral views can be performed to determine t he true amount of slippage during everyday activities. Please note that there is transitional anatomy here. Therefore this patient is ever to be a surgical candidate then close correlation the MRI and plain films is recommended so as to avoid operating on the wrong level. Abdominal aneurysm noted (fusiform) DATA REPOSITORY:
== END ==
PROVIDERS: PCP Nurse Practitioner Family; Visit Provider Student in an Organized Health Care Education/Training Program
DX: M47.816 Spondylosis without myelopathy or radiculopathy, lumbar region (principal); I71.43 Infrarenal abdominal aortic aneurysm, without rupture
CPT/HCPCS: 72148

== ENCOUNTER 2022-12-04 04:09 | Outpatient (CLI) | payer MEDICAID, SELFPAY ==
[2022-12-04 11:47] LABS: Abs Immature Grans 0.03 10^3/uL (0.0-0.06); Absolute Basophil Count 0.06 10^3/uL (0.0-0.2); Absolute Eosinophil Count 0.17 10^3/uL (0.0-0.7); Absolute Lymphocyte Count 2.55 10^3/uL (1.2-3.4); Absolute Monocyte Count 0.55 10^3/uL (0.1-0.8); Absolute Neutrophil Count 4.14 10^3/uL (1.2-6.7); Basophils % 0.8; Eosinophils % 2.3; HCT 45.4 % (40.0-50.0); HGB 15.4 g/dL (13.5-17.5); Immature Grans % 0.4; MCH 33.5 pg (27.0-33.0); MCHC 33.9 % (32.0-36.0); MCV 99 fL (80-95); MPV 8.7 fL (8.0-11.0); Monocytes % 7.3; Neutrophils % 55.2; Platelet Count 231 10^3/uL (130-400); RDW 12.5 % (11.8-14.1)
[2022-12-04 11:58] LABS: Hemoglobin A1C 6.6 % (<5.7)
[2022-12-04 12:07] LABS: ALT 40 U/L (16-63); AST 27 U/L (15-37); Albumin 3.7 g/dL (3.4-5.0); Alkaline Phosphatase 73 U/L (46-116); BUN 11 mg/dL (7-18); Bilirubin, Total 0.4 mg/dL (0.2-1.0); Calcium 9.5 mg/dL (8.5-10.1); Chloride 102 mmol/L (98-107); Estimated GFR 87.24 (mL/min/1.73m2); Glucose 112 mg/dL (74-106); Potassium 4.6 mmol/L (3.5-5.1); Sodium 137 mmol/L (136-145); Total Protein 7.3 g/dL (6.4-8.2); Uric Acid 6.8 mg/dL (3.5-7.2)
[2022-12-04 12:20] LABS: Calculated LDL 94 mg/dL (<100); Cholesterol 161 mg/dL (<200); HDL Cholesterol 28 mg/dL (40-60); Triglyceride 198 mg/dL (<150)
[2022-12-04 19:19] LABS: PSA, Screening 1.3 ng/mL (<=3.5)
== END 2022-12-04 04:10 | disposition home or self-care (01) ==
LOC: LBO 04:11
PROVIDERS: PCP Nurse Practitioner Family; Visit Provider Internal Medicine Rheumatology
DX: M25.561 Pain in right knee (principal); M25.562 Pain in left knee; G89.29 Other chronic pain
CPT/HCPCS: 36415; 80053; 80061; 84153; 83036; 84550; 85025

== ENCOUNTER 2023-01-03 19:02 | Outpatient (CLI) | payer MEDICAID, SELFPAY ==
[2023-01-03 13:25] LABS: Abs Immature Grans 0.06 10^3/uL (0.0-0.06); Absolute Basophil Count 0.06 10^3/uL (0.0-0.2); Absolute Eosinophil Count 0.13 10^3/uL (0.0-0.7); Absolute Lymphocyte Count 1.35 10^3/uL (1.2-3.4); Absolute Monocyte Count 0.59 10^3/uL (0.1-0.8); Absolute Neutrophil Count 5.72 10^3/uL (1.2-6.7); Basophils % 0.8; Eosinophils % 1.6; HCT 45.4 % (40.0-50.0); HGB 15.7 g/dL (13.5-17.5); Immature Grans % 0.8; Lymphocytes % 17.1; MCH 33.9 pg (27.0-33.0); MCHC 34.6 % (32.0-36.0); MCV 98 fL (80-95); MPV 8.7 fL (8.0-11.0); Monocytes % 7.5; Neutrophils % 72.2; Platelet Count 239 10^3/uL (130-400); RBC 4.63 10^6/uL (4.36-5.78); RDW 12.5 % (11.8-14.1); RDW-SD 44.6 fL; WBC 7.91 10^3/uL (4.4-10.8)
[2023-01-03 14:22] LABS: ALT 38 U/L (16-63); AST 20 U/L (15-37); Albumin 3.7 g/dL (3.4-5.0); Alkaline Phosphatase 82 U/L (46-116); Anion Gap 8.1 mmol/L (3-11); BUN 14 mg/dL (7-18); Bilirubin, Total 0.3 mg/dL (0.2-1.0); CO2 27.9 mmol/L (21.0-32.0); CREATININE 1.1 mg/dL (0.70-1.30); Calcium 9.5 mg/dL (8.5-10.1); Chloride 101 mmol/L (98-107); Estimated GFR 77.81 (mL/min/1.73m2); Glucose 111 mg/dL (74-106); Potassium 4.2 mmol/L (3.5-5.1); Sodium 137 mmol/L (136-145); Uric Acid 7.1 mg/dL (3.5-7.2)
== END 2023-01-03 19:03 | disposition home or self-care (01) ==
LOC: LBO 19:03
PROVIDERS: PCP Nurse Practitioner Family; Visit Provider Internal Medicine Rheumatology
DX: M25.561 Pain in right knee (principal); M25.562 Pain in left knee; G89.29 Other chronic pain
CPT/HCPCS: 36415; 80053; 84550; 85025

== ENCOUNTER 2023-01-28 16:08 | Emergency (ER) | payer MEDICAID, SELFPAY ==
--- NOTE | 2023-01-28 16:30 | DI.RAD_ITS ---
Exam(s) XR WRIST LT COMPLETE EXAM: XR WRIST LT COMPLETE CLINICAL HISTORY: Left wrist injury, pain. TECHNIQUE: 2D digital imaging was performed. COMPARISON: No exams were available for comparison FINDINGS: 3 views No evidence of acute fracture or dislocation nor significant ulnar variance. No scaphoid fracture no r specific nephritic in widening of the scapholunate distance. There are multiple cysts in the scaph oid both proximally and distally. Lunate unremarkable. No degenerative changes in the carpal row kimberly kee including the 1st carpometacarpal joint. IMPRESSION: No fractures evident. Cysts noted in the scaphoid/navicular bone. DATA REPOSITORY: RADIATION DOSE DELIVERED:
[2023-01-28 16:31] VITALS: BP 146/78; PULSE 81; RESP 18; TEMP 36.7; O2SAT 99
--- NOTE | 2023-01-28 17:21 | W.ED.GENAD ---
Discharge Plan Disposition Patient Disposition: Home Condition: Stable Discharge Details Clinical Impression: Left wrist sprain Primary Care Provider: Dary Amaya ED Provider: Krystina Connelly Home Meds and New Rx's Prescriptions: Continued allopurinol 100 mg tablet 50 mg PO DAILY cyanocobalamin (vitamin B-12) 1,000 mcg tablet 1,000 mcg PO DAILY Hold Instructions: Pt Stopped/Never Started cyclobenzaprine 10 mg tablet 10 mg PO HS duloxetine 60 mg capsule,delayed release(DR/EC) 60 mg PO DAILY gabapentin 300 mg capsule 300 mg PO BID ixekizumab 80 mg/mL auto-injector 80 mg subcut Q4W lisinopril 20 mg tablet 20 mg PO DAILY methotrexate sodium 2.5 mg tablet 15 mg PO QWEEK omeprazole 40 mg capsule,delayed release(DR/EC) 40 mg PO DAILY Praluent Pen 75 mg/mL pen injector 75 mg subcut Q14D citalopram 20 MG tablet 20 mg PO .QHS fluticasone propionate [Flovent HFA] 120 PUFF HFA aerosol inhaler 1 puff Inhalation BID ProAir RespiClick 90 MCG aerosol powdr breath activated 2 puff Inhalation .[id number] PRN metoprolol tartrate 25 MG tablet 25 mg PO BID diltiazem HCl 30 mg tablet 30 mg PO DAILY Patient Comments: TAKE ONE TABLET BY MOUTH EVERY DAY Eliquis 5 mg tablet 5 mg PO BID Patient Comments: TAKE ONE TABLET BY MOUTH TWICE A DAY folic acid 1 mg tablet 1 mg PO DAILY Patient Comments: TAKE 1 TABLET BY MOUTH ONCE DAILY Discharge Instructions Instructions: Wrist Sprain (ED) Additional Instructions: Wear the wrist splint as needed for comfort. Rest ice compression elevation. Please take Tylenol or Ibuprofen with food every 4-6 hours as needed for pain and swelling. If continued pain after 1 to 2 weeks please follow-up with orthopedics if needed. Follow up with primary care provider in 3-5 days. Return to ED sooner if any worsening or concerns. Increase oral fluids. Referrals: Declan Castro MD [ [facility] STAFF PHYSICIAN] - 2 weeks Medical Decision Making 57-year-old male presents to the ER with a chief complaint of left wrist pain status post a mechanical fall approximately 2 to 3 days ago. Patient reports he was outside tripped on some branches and fell. He reports increased wrist pain has been taking Tylenol with little to no relief. No other associated symptoms or complaints at this time did not hit his head denies any headache or neck pain. X-ray left wrist shows no acute fracture. Patient placed in a universal wrist splint discussed home care including RICE procedures and follow-up with Ortho if no improvement. Patient verbalized understanding. This text was generated using [employer] dictation system, please disregard any oddities of phrase or misspellings. Imaging Data Radiologic Study: Imaging: X-Ray Radiologist's impression: EXAM: XR WRIST LT COMPLETE CLINICAL HISTORY: Left wrist injury, pain. TECHNIQUE: 2D digital imaging was performed. COMPARISON: No exams were available for comparison FINDINGS: 3 views No evidence of acute fracture or dislocation nor significant ulnar variance. No scaphoid fracture nor specific nephritic in widening of the scapholunate distance. There are multiple cysts in the scaphoid both proximally and distally. Lunate unremarkable. No degenerative changes in the carpal row bones including the 1st carpometacarpal joint. IMPRESSION: No fractures evident. Cysts noted in the scaphoid/navicular bone HPI General Mode of arrival: ambulatory. Date/Time Provider Initiated Documentation: 01/28/23 16:32. Limitations to Documentation: no limitations. Information obtained by: patient, RN notes reviewed and old records reviewed. HPI Narrative: 57-year-old male presents to the ER with a chief complaint of left wrist pain status post a mechanical fall approximately 2 to 3 days ago. Patient reports he was outside tripped on some branches and fell. He reports increased wrist pain has been taking Tylenol with little to no relief. No other associated symptoms or complaints at this time did not hit his head denies any headache or neck pain. Related Data Home Medications Medication Instructions Recorded Confirmed albuterol sulfate 90 mcg/actuation 2 puff inhalation .[id number] PRN 11/21/15 01/28/23 breath activated powder inhaler (ProAir RespiClick) citalopram 20 mg tablet 20 mg PO .QHS 11/21/15 01/28/23 fluticasone propionate 220 1 puff inhalation BID 11/21/15 01/28/23 mcg/actuation HFA aerosol inhaler (Flovent HFA) metoprolol tartrate 25 mg tablet 25 mg PO BID 03/29/16 01/28/23 apixaban 5 mg tablet (Eliquis) 5 mg PO BID 11/25/19 01/28/23 diltiazem HCl 30 mg tablet 30 mg PO DAILY 11/25/19 01/28/23 folic acid 1 mg tablet 1 mg PO DAILY 11/25/19 01/28/23 alirocumab 75 mg/mL subcutaneous 75 mg subcut Q14D 08/07/22 01/28/23 pen injector (Praluent Pen) allopurinol 100 mg tablet 50 mg PO DAILY 08/07/22 01/28/23 cyanocobalamin (vitamin B-12) 1,000 mcg PO DAILY 08/07/22 01/28/23 1,000 mcg tablet cyclobenzaprine 10 mg tablet 10 mg PO HS 08/07/22 01/28/23 duloxetine 60 mg capsule,delayed 60 mg PO DAILY 08/07/22 01/28/23 release gabapentin 300 mg capsule 300 mg PO BID 08/07/22 01/28/23 ixekizumab 80 mg/mL subcutaneous 80 mg subcut Q4W 08/07/22 01/28/23 auto-injector lisinopril 20 mg tablet 20 mg PO DAILY 08/07/22 01/28/23 methotrexate sodium 2.5 mg tablet 15 mg PO QWEEK 08/07/22 01/28/23 omeprazole 40 mg capsule,delayed 40 mg PO DAILY 08/07/22 01/28/23 release Allergies Allergy/AdvReac Type Severity Reaction Status Date / Time No Known Allergies Allergy Unverified 11/04/22 09:10 General Stated Complaint: Fall/Non TraumaCriteria DARIELA: 4 Review of Systems Musculoskeletal Musculoskeletal: Reports as per HPI and Reports arthralgias PFSH All Active Problems (Updated 01/28/23 @ 18:26 by Krystina Connelly NP) Left wrist sprain (Acute) Degenerative joint disease (DJD) of lumbar spine (Acute) Tobacco use (Acute) SAVANA (obstructive sleep apnea) (Chronic) Psoriatic arthritis (Acute) Mixed hyperlipidemia (Acute) Hypertrophic cardiomyopathy (Acute) Essential hypertension (Acute) CAD (coronary artery disease) (Chronic) Afib (Chronic) AAA (abdominal aortic aneurysm) (Acute) Sinusitis (Acute) Medical History Diverticulitis Obesity Rotator cuff tear, left Onychomycosis Erectile dysfunction Carpal tunnel syndrome of left wrist Brachial plexus lesions Amputation of finger tip Diabetes Right shoulder pain Major depressive disorder GERD (gastroesophageal reflux disease) Gout Surgical History History of partial colectomy H/O wrist surgery History of shoulder surgery Status post cardiac surgery H/O cardiac catheterization Family History Mother Diabetes Coronary artery disease Arthritis, rheumatoid Heart disease Father Coronary artery disease Diabetes Obesity Cancer pancreatic Arthritis, rheumatoid Pancreatic cancer Sister Arthritis, rheumatoid PVD (peripheral vascular disease) Diabetes Obesity Social History Smoking/Tobacco Use Status: Current every day Tobacco Type: cigarettes Smoking packs per day: 1 Smoking cigarettes per day: 20.0 Smoking risk assessment performed?: Yes Alcohol Intake: current Alcohol Intake frequency: holidays/special occasions only Drug use: Never Substance use type: does not use Housing: house Do you feel safe at home: Yes Do you feel safe in your relationship?: Yes Exam Narrative Exam Narrative: General: Well Developed, Awake and Alert, conversant. Skin: Warm and Dry HEENT: Head: No palpable deformities, Normocephalic Eyes: Pupils PERRLA, EOM's intact. No periorbital eccymosis or step off Ears: Canal patent. Tympanic membranes are clear . No craven's sign, no hemptympanum. Nose/Face: Atraumatic. Facial bones nontender to palpation and stable with manipulation. Mouth/Throat: No intraoral trauma. Teeth and mandible are intact. Neck: No midline tenderness, no step off, no deformity to palpation of C-spine. Trachea midline. Chest: No surface trauma. Nontender without crepitus or deformity. Lungs clear to ausculatation bilaterally. Heart: RRR, no rubs, murmurs or gallop. Abdomen: No abrasions, ecchymosis, or surface trauma. Nondistended. Nontender to palpation no guarding, rebound, or rigidity. Pelvis: Nontender to palpation and stable to compression. Femoral pulses strong and equal Extremities: no surface trauma. Sensation intact. Peripheral pulses intact and equal. Neuro: ANO x4, GCS 15, cranial nerves II through XII intact. Motor and sensory exam nonfocal. Reflexes are symmetric. Course Vital Signs Vital signs: Vital Signs Temperature 36.7 C 01/28/23 16:31 Pulse 81 01/28/23 16:31 Respiratory Rate 18 01/28/23 16:31 Blood Pressure 146/78 H 01/28/23 16:31 Pulse Oximetry 99 01/28/23 16:31 Temperature 36.7 C 01/28/23 16:31 Temperature Source Temporal Artery Scan 01/28/23 16:31 Pulse 81 01/28/23 16:31 Respiratory Rate 18 01/28/23 16:31 Respiratory Effort Normal 01/28/23 16:34 Blood Pressure 146/78 H 01/28/23 16:31 Pulse Oximetry 99 01/28/23 16:31 Oxygen Delivery Method Room Air 01/28/23 16:31 Oxygen Flow Rate 0 01/28/23 16:31
== END 2023-01-28 18:32 | disposition home or self-care (01) ==
PROVIDERS: Emergency Provider Registered Nurse Emergency; PCP Nurse Practitioner Family
DX: S63.502A Unspecified sprain of left wrist, initial encounter (principal); I25.10 Atherosclerotic heart disease of native coronary artery without angina pectoris; I10 Essential (primary) hypertension; E11.9 Type 2 diabetes mellitus without complications; I48.91 Unspecified atrial fibrillation; F17.210 Nicotine dependence, cigarettes, uncomplicated; Z79.01 Long term (current) use of anticoagulants; Z79.84 Long term (current) use of oral hypoglycemic drugs; W01.0XXA Fall on same level from slipping, tripping and stumbling without subsequent striking against object, initial encounter; Y93.01 Activity, walking, marching and hiking; Y92.017 Garden or yard in single-family (private) house as the place of occurrence of the external cause
CPT/HCPCS: 29125; 99283; 73110

== ENCOUNTER 2023-03-28 04:36 | Outpatient (CLI) | payer MEDICAID, SELFPAY ==
[2023-03-28 14:30] LABS: Abs Immature Grans 0.04 10^3/uL (0.0-0.06); Absolute Basophil Count 0.08 10^3/uL (0.0-0.2); Absolute Eosinophil Count 0.41 10^3/uL (0.0-0.7); Absolute Lymphocyte Count 2.55 10^3/uL (1.2-3.4); Absolute Monocyte Count 0.67 10^3/uL (0.1-0.8); Basophils % 0.8; HCT 49.2 % (40.0-50.0); HGB 16.7 g/dL (13.5-17.5); Immature Grans % 0.4; Lymphocytes % 24.6; MCH 33.5 pg (27.0-33.0); MCHC 33.9 % (32.0-36.0); MCV 99 fL (80-95); MPV 8.8 fL (8.0-11.0); Monocytes % 6.5; Neutrophils % 63.7; Platelet Count 262 10^3/uL (130-400); RBC 4.98 10^6/uL (4.36-5.78); RDW 12.8 % (11.8-14.1); RDW-SD 46.8 fL; WBC 10.35 10^3/uL (4.4-10.8)
[2023-03-28 14:48] LABS: ALT 37 U/L (16-63); AST 22 U/L (15-37); Albumin 3.9 g/dL (3.4-5.0); Alkaline Phosphatase 82 U/L (46-116); Anion Gap 8.5 mmol/L (3-11); BUN 9 mg/dL (7-18); Bilirubin, Total 0.3 mg/dL (0.2-1.0); CO2 29.5 mmol/L (21.0-32.0); CREATININE 1.2 mg/dL (0.70-1.30); Calcium 9.6 mg/dL (8.5-10.1); Chloride 102 mmol/L (98-107); Glucose 110 mg/dL (74-106); Potassium 4.1 mmol/L (3.5-5.1); Sodium 140 mmol/L (136-145); Total Protein 7.5 g/dL (6.4-8.2); Uric Acid 7.1 mg/dL (3.5-7.2)
== END 2023-03-28 04:37 | disposition home or self-care (01) ==
LOC: LBO 04:36
PROVIDERS: PCP Nurse Practitioner Family; Visit Provider Internal Medicine Rheumatology
DX: L40.50 Arthropathic psoriasis, unspecified (principal); Z79.899 Other long term (current) drug therapy; M10.072 Idiopathic gout, left ankle and foot
CPT/HCPCS: 36415; 80053; 84550; 85025

== ENCOUNTER 2023-07-18 15:35 | Emergency (ER) | payer MEDICAID, SELFPAY ==
[2023-07-18 15:36] VITALS: BP 183/77; PULSE 88; RESP 12; TEMP 36.2; O2SAT 98
== END 2023-07-18 17:21 ==
LOC: ER 15:38
PROVIDERS: PCP Nurse Practitioner Family
DX: Z53.21 Procedure and treatment not carried out due to patient leaving prior to being seen by health care provider (principal)

== ENCOUNTER 2023-07-20 10:07 | Emergency (ER) | payer MEDICAID, SELFPAY ==
[2023-07-20 10:13] VITALS: BP 156/70; PULSE 76; RESP 16; TEMP 36.5; O2SAT 96
[2023-07-20 10:21] VITALS: BP 156/70; PULSE 76; RESP 16; TEMP 36.5; O2SAT 96
[2023-07-20 10:48] VITALS: BP 156/70; PULSE 76; RESP 16; TEMP 36.5; O2SAT 96
--- NOTE | 2023-07-20 14:12 | ED.GENADUL_ITS ---
Discharge Plan Disposition Patient Disposition: Home Condition: Stable Discharge Details Clinical Impression: Subconjunctival hemorrhage Primary Care Provider: Dary Aamya ED Provider: Klaudia Neville Home Meds and New Rx's Prescriptions: Continued cyclobenzaprine 10 mg tablet 10 mg PO HS duloxetine 60 mg capsule,delayed release(DR/EC) 60 mg PO DAILY gabapentin 300 mg capsule 300 mg PO BID lisinopril 20 mg tablet 20 mg PO DAILY methotrexate sodium 2.5 mg tablet 15 mg PO QWEEK omeprazole 40 mg capsule,delayed release(DR/EC) 40 mg PO DAILY Praluent Pen 75 mg/mL pen injector 75 mg subcut Q14D citalopram 20 MG tablet 20 mg PO .QHS fluticasone propionate [Flovent HFA] 120 PUFF HFA aerosol inhaler 1 puff Inhalation BID ProAir RespiClick 90 MCG aerosol powdr breath activated 2 puff Inhalation .[id number] PRN metoprolol tartrate 25 MG tablet 25 mg PO BID diltiazem HCl 30 mg tablet 30 mg PO DAILY Patient Comments: TAKE ONE TABLET BY MOUTH EVERY DAY Eliquis 5 mg tablet 5 mg PO BID Patient Comments: TAKE ONE TABLET BY MOUTH TWICE A DAY folic acid 1 mg tablet 1 mg PO DAILY Patient Comments: TAKE 1 TABLET BY MOUTH ONCE DAILY Discharge Instructions Instructions: Subconjunctival Hemorrhage (ED) Additional Instructions: You may skip 2 doses of her Eliquis, monitor your pulse and if you going back into atrial fibrillation make sure to reinitiate your Eliquis Alternatively it will not harm you to continue on the Eliquis, this will eventually stop bleeding and will likely resolve within the next 2 weeks Should you have any concerns please follow-up with your eye doctor Discharge Data Discharge Date/Time-TO BE ENTERED AT DEPARTURE: 07/20/23 10:52 HPI General Date/Time Provider Initiated Documentation: 07/20/23 10:08 . HPI Narrative: This 58-year-old male with history of psoriatic arthritis, mixed hyperlipidemia, hypertrophic cardiomyopathy, coronary artery disease, abdominal aortic aneurysm anticoagulated on Eliquis and immunosuppressed presents with report of hemorrhage to left eye on when patient woke. He states it is worsened since initially started. He denies any bleeding from additional areas or vision change. He denies any associated headache nausea, vomiting, dizziness. Related Data Home Medications Medication Instructions Recorded Confirmed albuterol sulfate 90 mcg/actuation 2 puff inhalation .[id number] PRN 11/21/15 07/20/23 breath activated powder inhaler (ProAir RespiClick) citalopram 20 mg tablet 20 mg PO .QHS 11/21/15 07/20/23 fluticasone propionate 220 1 puff inhalation BID 11/21/15 07/20/23 mcg/actuation HFA aerosol inhaler (Flovent HFA) metoprolol tartrate 25 mg tablet 25 mg PO BID 03/29/16 07/20/23 apixaban 5 mg tablet (Eliquis) 5 mg PO BID 11/25/19 07/20/23 diltiazem HCl 30 mg tablet 30 mg PO DAILY 11/25/19 07/20/23 folic acid 1 mg tablet 1 mg PO DAILY 11/25/19 07/20/23 alirocumab 75 mg/mL subcutaneous 75 mg subcut Q14D 08/07/22 07/20/23 pen injector (Praluent Pen) cyclobenzaprine 10 mg tablet 10 mg PO HS 08/07/22 07/20/23 duloxetine 60 mg capsule,delayed 60 mg PO DAILY 08/07/22 07/20/23 release gabapentin 300 mg capsule 300 mg PO BID 08/07/22 07/20/23 lisinopril 20 mg tablet 20 mg PO DAILY 08/07/22 07/20/23 methotrexate sodium 2.5 mg tablet 15 mg PO QWEEK 08/07/22 07/20/23 omeprazole 40 mg capsule,delayed 40 mg PO DAILY 08/07/22 07/20/23 release Allergies Allergy/AdvReac Type Severity Reaction Status Date / Time No Known Allergies Allergy Unverified 07/20/23 10:13 General Stated Complaint: EyeProblem DARIELA: 3 Exam Narrative Exam Narrative: Alert and oriented 58-year-old gentleman with a subconjunctival hemorrhage to the left eye without evidence of of hyphema, ocular pressure of 13 and left eye, extraocular muscles intact, pupils equal round reactive to light and accommodation, lungs clear to auscultation, cardiac rate rhythm regular Course Vital Signs Vital signs: Vital Signs Temperature 36.5 C 07/20/23 10:13 Pulse 76 07/20/23 10:13 Respiratory Rate 16 07/20/23 10:13 Blood Pressure 156/70 H 07/20/23 10:13 Pulse Oximetry 96 07/20/23 10:13 Temperature 36.5 C 07/20/23 10:48 Temperature Source Tympanic 07/20/23 10:21 Pulse 76 07/20/23 10:48 Respiratory Rate 16 07/20/23 10:48 Respiratory Effort Normal, Non-Labored 07/20/23 10:15 Blood Pressure 156/70 H 07/20/23 10:48 Blood Pressure Position Sitting 07/20/23 10:21 Pulse Oximetry 96 07/20/23 10:48 Oxygen Delivery Method Room Air 07/20/23 10:21 Oxygen Flow Rate 0 07/20/23 10:13 Pain Level 0 07/20/23 10:48 Medical Decision Making Visual acuity for this patient presenting with left was 20/25 and left eye, affected eye and 20/50 in right eye. Patient is in no acute distress, pupils equal round reactive to light and accommodation, remainder of exam benign although patient is anticoagulated on Eliquis, he is not currently in atrial fibrillation based on my assessment and he may skip a dose or 2 of Eliquis. We discussed risk benefit skipping Eliquis and patient will decide plan in his own discretion. He was made aware that some conjunctival hemorrhage will not harm him although it can be unsightly. He is aware that this will likely take 2 to 3 weeks to resolve especially his immunocompromise state and chronic anticoagulation use. He is encouraged to follow-up with his is project manager should any new concerns arise or if her symptoms persist longer than 2 weeks. He will use lubricating eyedrops as needed. Quality:SDOH Health Related Social Needs: No Data to Display PFSH All Active Problems (Updated 07/20/23 @ 10:40 by BENITO Almaguer) Subconjunctival hemorrhage (Acute) Lumbosacral spondylosis without myelopathy (Acute) Degenerative joint disease (DJD) of lumbar spine (Acute) Tobacco use (Acute) SAVANA (obstructive sleep apnea) (Chronic) Psoriatic arthritis (Acute) Mixed hyperlipidemia (Acute) Hypertrophic cardiomyopathy (Acute) Essential hypertension (Acute) CAD (coronary artery disease) (Chronic) Afib (Chronic) AAA (abdominal aortic aneurysm) (Acute) Sinusitis (Acute) Medical History (Updated 07/20/23 @ 10:40 by BENITO Almaguer) Diverticulitis Obesity Rotator cuff tear, left Onychomycosis Erectile dysfunction Carpal tunnel syndrome of left wrist Brachial plexus lesions Amputation of finger tip Diabetes Right shoulder pain Major depressive disorder GERD (gastroesophageal reflux disease) Gout Surgical History (Updated 02/13/23 @ 10:23 by Kallie Alves, JENNIFER) History of partial colectomy H/O wrist surgery History of shoulder surgery Status post cardiac surgery around 2014 open heart surgery H/O cardiac catheterization Family History Mother Diabetes Coronary artery disease Arthritis, rheumatoid Heart disease Father Coronary artery disease Diabetes Obesity Cancer pancreatic Arthritis, rheumatoid Pancreatic cancer Sister Arthritis, rheumatoid PVD (peripheral vascular disease) Diabetes Obesity Social History Smoking/Tobacco Use Status: Current every day Tobacco Type: cigarettes Smoking packs per day: 1 Smoking cigarettes per day: 20.0 Smoking risk assessment performed?: Yes Alcohol Intake: current Alcohol Intake frequency: holidays/special occasions only Drug use: Never Substance use type: does not use Housing: house Do you feel safe at home: Yes Do you feel safe in your relationship?: Yes
== END 2023-07-20 10:52 | disposition home or self-care (01) ==
PROVIDERS: Emergency Provider Physician Assistant; PCP Nurse Practitioner Family
DX: H11.32 Conjunctival hemorrhage, left eye (principal); L40.59 Other psoriatic arthropathy; E78.2 Mixed hyperlipidemia; I51.7 Cardiomegaly; I25.10 Atherosclerotic heart disease of native coronary artery without angina pectoris; I71.40 Abdominal aortic aneurysm, without rupture, unspecified; F17.210 Nicotine dependence, cigarettes, uncomplicated; Z79.60 Long term (current) use of unspecified immunomodulators and immunosuppressants; Z79.01 Long term (current) use of anticoagulants
CPT/HCPCS: 99283

== ENCOUNTER 2023-11-24 15:15 | Emergency (ER) | payer MEDICAID, SELFPAY ==
--- NOTE | 2023-11-24 15:15 | RT.EKG_ITS ---
APPROVED REPORT Exam: Resting ECG Reason for Exam: chest pain Patient Location: E HR:83 bpm ECG Measurements Heart Rate [address] 174 P 48 QRSd 161 QRS 29 QT 418 T 184 QTc 491 Conclusion Sinus rhythm...normal P axis, V-rate 60- 99 Left bundle branch block...QRSd>120, broad/notched R ST elevation secondary to IVCD...Multiple VCG criteria sinus rhtyhm, normal axis, LBBB with discordany St changes
[2023-11-24 15:17] VITALS: BP 161/77; PULSE 86; RESP 20; TEMP 36.4; O2SAT 94
[2023-11-24 15:18] VITALS: PULSE 89; RESP 22
[2023-11-24 15:20] VITALS: BP 161/77; PULSE 81; PULSE 84; RESP 16; O2SAT 94
[2023-11-24 15:21] VITALS: PULSE 88; RESP 13; O2SAT 95
--- NOTE | 2023-11-24 15:34 | ED.GENADUL_ITS ---
Discharge Plan Disposition Patient Disposition: Home Condition: Improving Discharge Details Chief Complaint: Chest Pain Clinical Impression: Chest pain Primary Care Provider: Dary Amaya ED Provider: Shashank Martins Home Meds and New Rx's Prescriptions: No Action cyclobenzaprine 10 mg tablet 10 mg PO HS duloxetine 60 mg capsule,delayed release(DR/EC) 60 mg PO DAILY gabapentin 300 mg capsule 300 mg PO BID lisinopril 20 mg tablet 20 mg PO DAILY methotrexate sodium 2.5 mg tablet 15 mg PO QWEEK omeprazole 40 mg capsule,delayed release(DR/EC) 40 mg PO DAILY Praluent Pen 75 mg/mL pen injector 75 mg subcut Q14D citalopram 20 MG tablet 20 mg PO .QHS fluticasone propionate [Flovent HFA] 120 PUFF HFA aerosol inhaler 1 puff Inhalation BID ProAir RespiClick 90 MCG aerosol powdr breath activated 2 puff Inhalation .[id number] PRN metoprolol tartrate 25 MG tablet 25 mg PO BID diltiazem HCl 30 mg tablet 30 mg PO DAILY Patient Comments: TAKE ONE TABLET BY MOUTH EVERY DAY Eliquis 5 mg tablet 5 mg PO BID Patient Comments: TAKE ONE TABLET BY MOUTH TWICE A DAY folic acid 1 mg tablet 1 mg PO DAILY Patient Comments: TAKE 1 TABLET BY MOUTH ONCE DAILY Discharge Instructions Instructions: Chest Pain (DC), Acid reflux and GERD in adults Additional Instructions: Please follow-up with your primary care physician. Return to the emergency department for any worsening symptoms HPI General Date/Time Provider Initiated Documentation: 11/24/23 15:16 . HPI Narrative: 58-year-old male history of A-fib, abdominal aortic aneurysm, hypertrophic cardiomyopathy cardiac stenting presents with chest pain rating to his back over the last couple of days associated with sensation in his throat and fullness/gas-like sensation has not been able to get comfortable over the last day. Related Data Home Medications ?Medication ?Instructions ?Recorded ?Confirmed albuterol sulfate 90 mcg/actuation 2 puff inhalation .[id number] PRN 11/21/15 11/24/23 breath activated powder inhaler (ProAir RespiClick) citalopram 20 mg tablet 20 mg PO .QHS 11/21/15 11/24/23 fluticasone propionate 220 1 puff inhalation BID 11/21/15 11/24/23 mcg/actuation HFA aerosol inhaler (Flovent HFA) metoprolol tartrate 25 mg tablet 25 mg PO BID 03/29/16 11/24/23 apixaban 5 mg tablet (Eliquis) 5 mg PO BID 11/25/19 11/24/23 diltiazem HCl 30 mg tablet 30 mg PO DAILY 11/25/19 11/24/23 folic acid 1 mg tablet 1 mg PO DAILY 11/25/19 11/24/23 alirocumab 75 mg/mL subcutaneous 75 mg subcut Q14D 08/07/22 11/24/23 pen injector (Praluent Pen) cyclobenzaprine 10 mg tablet 10 mg PO HS 08/07/22 11/24/23 duloxetine 60 mg capsule,delayed 60 mg PO DAILY 08/07/22 11/24/23 release gabapentin 300 mg capsule 300 mg PO BID 08/07/22 11/24/23 lisinopril 20 mg tablet 20 mg PO DAILY 08/07/22 11/24/23 methotrexate sodium 2.5 mg tablet 15 mg PO QWEEK 08/07/22 11/24/23 omeprazole 40 mg capsule,delayed 40 mg PO DAILY 08/07/22 11/24/23 release Allergies Allergy/AdvReac Type Severity Reaction Status Date / Time No Known Allergies Allergy Unverified 07/20/23 10:13 General Stated Complaint: Chest Pain DARIELA: 3 Exam Narrative Exam Narrative: Patient appears uncomfortable Speaking full sentences tolerating secretions normal voice Lungs clear bilaterally no wheezes rales or rhonchi Normal heart sounds no murmurs rubs or gallops Strong radial pulses bilaterally strong DP pulses bilaterally equal Abdomen somewhat distended although nonperitoneal Alert oriented normal speech cranial nerves intact moving all extremities without deficit no ataxia No peripheral edema Course Vital Signs Vital signs: Vital Signs Temperature 36.4 C 11/24/23 15:17 Pulse 86 11/24/23 15:17 Respiratory Rate 20 11/24/23 15:17 Blood Pressure 161/77 H 11/24/23 15:17 Pulse Oximetry 94 11/24/23 15:17 Temperature 36.4 C 11/24/23 15:17 Temperature Source Oral 11/24/23 15:17 Pulse 81 11/24/23 15:20 Pulse 88 11/24/23 15:21 Respiratory Rate 13 11/24/23 15:21 Respiratory Effort Normal 11/24/23 15:27 Respiratory Depth Normal 11/24/23 15:27 Respiratory Pattern Normal 11/24/23 15:27 Blood Pressure 161/77 H 11/24/23 15:20 Blood Pressure Mean 102 11/24/23 15:20 Blood Pressure Position Sitting 11/24/23 15:17 Pulse Oximetry 95 11/24/23 15:21 Oxygen Delivery Method Room Air 11/24/23 15:17 Oxygen Flow Rate 0 11/24/23 15:17 Medical Decision Making 58-year-old male history of A-fib, abdominal aortic aneurysm, hypertrophic cardiomyopathy cardiac stenting presents with chest pain rating to his back over the last couple of days associated with sensation in his throat and fullness/gas-like sensation has not been able to get comfortable over the last day. EKG sinus rhythm with left bundle branch block negative by Sgarbossa criteria, although patient has no past EKG in our system patient has had extensive cardiac intervention including open heart surgery for hypertrophic cardiomyopathy as well as stenting patient is on Eliquis for A-fib, hemodynamically stable moderately hypertensive nontachycardic not hypoxic, equal pulses no neurologic deficits however given chest pain rating to back and neck with history of aortic pathology must consider aortic dissection versus enlarging aortic aneurysm lower suspicion for PE muscles consider ACS versus GERD versus gastritis versus viral illness lower suspicion for bowel obstruction. Will obtain stat CTA chest abdomen pelvis will provide GI cocktail holding aspirin at this time in case patient does have aortic pathology disposition pending results and imaging 17: 54 feeling much better after medication, labs and imaging unremarkable. High clinical special for gastritis versus GERD. Quality:SDOH Health Related Social Needs: No Data to Display PFSH All Active Problems (Updated 11/24/23 @ 17:55 by Shashank Martins MD) Chest pain (Acute) Lumbosacral spondylosis without myelopathy (Acute) Degenerative joint disease (DJD) of lumbar spine (Acute) Tobacco use (Acute) SAVANA (obstructive sleep apnea) (Chronic) Psoriatic arthritis (Acute) Mixed hyperlipidemia (Acute) Hypertrophic cardiomyopathy (Acute) Essential hypertension (Acute) CAD (coronary artery disease) (Chronic) Afib (Chronic) AAA (abdominal aortic aneurysm) (Acute) Sinusitis (Acute) Medical History (Updated 11/24/23 @ 17:55 by Shashank Martins MD) Diverticulitis Obesity Rotator cuff tear, left Onychomycosis Erectile dysfunction Carpal tunnel syndrome of left wrist Brachial plexus lesions Amputation of finger tip Diabetes Right shoulder pain Major depressive disorder GERD (gastroesophageal reflux disease) Gout Surgical History (Updated 02/13/23 @ 10:23 by Kallie Alves RN) History of partial colectomy H/O wrist surgery History of shoulder surgery Status post cardiac surgery around 2014 open heart surgery H/O cardiac catheterization Family History Mother Diabetes Coronary artery disease Arthritis, rheumatoid Heart disease Father Coronary artery disease Diabetes Obesity Cancer pancreatic Arthritis, rheumatoid Pancreatic cancer Sister Arthritis, rheumatoid PVD (peripheral vascular disease) Diabetes Obesity Social History Smoking/Tobacco Use Status: Current every day Tobacco Type: cigarettes Smoking packs per day: 1 Smoking cigarettes per day: 20.0 Smoking risk assessment performed?: Yes Alcohol Intake: current Alcohol Intake frequency: holidays/special occasions only Drug use: Never Substance use type: does not use Housing: house Do you feel safe at home: Yes Do you feel safe in your relationship?: Yes
[2023-11-24 15:43] LABS: Abs Immature Grans 0.07 10^3/uL (0.0-0.06); Absolute Basophil Count 0.07 10^3/uL (0.0-0.2); Absolute Eosinophil Count 0.34 10^3/uL (0.0-0.7); Absolute Lymphocyte Count 2.07 10^3/uL (1.2-3.4); Absolute Monocyte Count 1.09 10^3/uL (0.1-0.8); Absolute Neutrophil Count 6.53 10^3/uL (1.2-6.7); Basophils % 0.7 %; Eosinophils % 3.3 %; HCT 48.7 % (40.0-50.0); HGB 16.3 g/dL (13.5-17.5); Immature Grans % 0.7 %; Lymphocytes % 20.4 %; MCH 33.5 pg (27.0-33.0); MCHC 33.5 % (32.0-36.0); MCV 100 fL (80-95); MPV 8.8 fL (8.0-11.0); Monocytes % 10.7 %; Neutrophils % 64.2 %; Platelet Count 191 10^3/uL (130-400); RBC 4.86 10^6/uL (4.36-5.78); RDW 12.6 % (11.8-14.1); RDW-SD 46.8 fL; WBC 10.17 10^3/uL (4.4-10.8)
[2023-11-24] MEDS: Normal Saline 500 ML 1000 ML IV (15:45)
[2023-11-24] MEDS: Famotidine 20 MG/2 ML VIAL IVP (15:45)
[2023-11-24] MEDS: Ondansetron 4 MG/2 ML VIAL IVP (15:45)
[2023-11-24 15:56] LABS: PTT Activated 29.8 sec (23.6-32.8); Prothrombin Time 10.5 sec (9.1-11.1)
[2023-11-24 16:07] LABS: ALT 33 U/L (16-63); AST 20 U/L (15-37); Albumin 3.7 g/dL (3.4-5.0); Alkaline Phosphatase 82 U/L (46-116); Anion Gap 6.7 mmol/L (3-11); BUN 10 mg/dL (7-18); Bilirubin, Total 0.57 mg/dL (0.2-1.0); CO2 29.3 mmol/L (21.0-32.0); CREATININE 1.3 mg/dL (0.70-1.30); Calcium 9.7 mg/dL (8.5-10.1); Chloride 99 mmol/L (98-107); Estimated GFR 63.28 (mL/min/1.73m2); Glucose 154 mg/dL (74-106); Lipase 26 U/L (16-77); Magnesium 1.9 mg/dL (1.8-2.4); NT-proBNP 138 pg/mL (<300); Sodium 135 mmol/L (136-145); Total Protein 7.9 g/dL (6.4-8.2); Troponin I 11 ng/L (4-76)
[2023-11-24 16:19] LABS: COVID-19 PCR Negative (Negative); Influenza A PCR Negative (Negative); Influenza B PCR Negative (Negative); RSV PCR Negative (Negative)
[2023-11-24 16:22] LABS: Source Nasopharynx
--- NOTE | 2023-11-24 16:31 | DI.CT_ITS ---
Exam(s) CT THORAX ABD/PEL CTA EXAM: CT THORAX ABD/PEL CTA CLINICAL HISTORY: chest pain back, htn, hx AAA, consider dissection. TECHNIQUE: Imaging Protocol: Axial CT angiography was performed with multi-slice acquisition and m ulti-planar and/or 3D reconstructions. CONTRAST MATERIAL: Intravenous: Omnipaque 350 contrast volume:100 mL Oral: No COMPARISON: CT CT thorax abd/pel CTA from 04/18/[address] ABDOMEN PELVIS W from 08/25/2022 FINDINGS: The examination is limited due to patient motion artifact. CHEST: Tracheobronchial tree: Patent where visualized. Pulmonary parenchyma: No consolidation or dominant measurable mass. There is scarring seen in the rig ht middle lobe. Pulmonary Arteries: No evidence of filling defect to suggest pulmonary emboli. Mediastinum and Hiwot: No dominant adenopathy or fluid collection. There is diffuse [id number] t hickening of the esophagus through its entire length. Visualized thyroid: Unremarkable. Pleura: No effusion or pneumothorax. Heart: The heart is not dilated. Coronary artery calcification is present. No pericardial effusion. Aorta: Thoracic aorta non-dilated. No evidence of thoracic aortic dissection. Atherosclerotic calcif ication is present. Soft Tissues: Unremarkable. Bones: Within normal limits for the patient's age.Sternal wires are in place. The patient has a righ t shoulder replacement. ABDOMEN AND PELVIS: Abdomen: Celiac axis/mesenteric arteries: No evidence of occlusion or significant stenosis. Renal Arteries: No evidence of occlusion or significant stenosis. Minimal atherosclerosis at the romina gin of the left renal artery. Aorta: No evidence of occlusion or significant stenosis. There is a 3.1 x 2.8 cm infrarenal abdomin al aortic aneurysm. There is no evidence of dissection. Atherosclerotic calcification. Pelvis: Iliac Arteries: No evidence of occlusion or significant stenosis. Atherosclerotic calcification is present. Common Femoral Arteries: No evidence of occlusion or significant stenosis. Atherosclerotic calcific ation is present. ABDOMEN: Liver: There is diffuse decreased attenuation of the liver consistent with fatty infiltration. The l iver measures 20 cm long. No measurable mass. Gallbladder and Biliary Tract: No radiodense calculus or dilation. Pancreas: Normal density, no abnormal calcifications or inflammatory process. Spleen: Normal. Adrenals: No masses seen. Kidneys: Normal size, contour and axis. No radiodense stones or obstructive uropathy. Simple left moises al cysts. No follow-up is recommended. Bowel: No obstruction or bowel wall thickening. Appendix is unremarkable. Peritoneal Cavity: No ascites, collection or mesenteric inflammatory response. No free air. Lymph Nodes: Within normal limits. Bones: Within normal limits for the patient's age. Soft Tissues: There are small fat containing bilateral inguinal hernias. PELVIS: Bladder: Symmetric distention, no gross wall thickening. Reproductive Organs: Unremarkable as visualized. Lymph Nodes: Within normal limits. Bones: Within normal limits for the patient's age. IMPRESSION: 1. No evidence of thoracic aortic aneurysm or dissection. 2. Infrarenal abdominal aortic aneurysm. No evidence of dissection. 3. No evidence of pulmonary embolism. No acute pulmonary process. 4. Fatty infiltration and hepatomegaly. 5. No acute abdominal or pelvic process. RADIATION DOSE DELIVERED: 905.61mGy.cm Total DLP DATA REPOSITORY: All CT scans at this facility are submitted to the National Radiology Data Registry (NRDR) Dose Index Registry (DIR) with the [employer] (A[employer]). RADIATION OPTIMIZATION: All CT scans at this facility use at least one of these dose optimization te chniques: automated exposure control; mA and/or kV adjustment per patient size (includes targeted exa ms where dose is matched to clinical indication); or iterative reconstruction.
[2023-11-24] MEDS: Normal Saline - Diluent 50 ML VIAL IJ (16:32)
[2023-11-24] MEDS: Omnipaque 350 MG/ML 100 ML BTL IJ (16:33)
[2023-11-24 16:55] LABS: Troponin I 9 ng/L (4-76)
[2023-11-24] MEDS: ACETAMINOPHEN 1,000 MG/100 ML BTL 400 MG IVPB (17:23)
[2023-11-24] MEDS: LORazepam 2 MG/ML VIAL 0.5 MG IVP (17:23)
[2023-11-24 18:04] VITALS: BP 148/74; PULSE 74; RESP 16; O2SAT 98
== END 2023-11-24 18:04 | disposition home or self-care (01) ==
LOC: ER 18:14
PROVIDERS: Emergency Provider Emergency Medicine; PCP Nurse Practitioner Family
DX: R07.9 Chest pain, unspecified (principal); R07.0 Pain in throat; Z86.79 Personal history of other diseases of the circulatory system; Z98.61 Coronary angioplasty status
CPT/HCPCS: 36415; 71275; 80053; 83690; 87637; 87880; 93005; 96361; 96365; 96375; 99285; 74174; 83735; 83880; 84484; 85025; 85610; 85730; 93010; 99283; J0131; J2060; J2405; J3490

== ENCOUNTER 2023-11-29 16:07 | Outpatient (REF) | payer MEDICAID, SELFPAY | END 2023-11-29 16:08 | disposition home or self-care (01) | LOC: LBN 16:07 | PROVIDERS: PCP Nurse Practitioner Family; Visit Provider Physician Assistant Medical | DX: J02.9 Acute pharyngitis, unspecified (principal) | CPT/HCPCS: 87070 ==

== ENCOUNTER 2024-12-14 04:45 | Outpatient (CLI) | payer MEDICAID, SELFPAY ==
[2024-12-14 11:34] LABS: Abs Immature Grans 0.06 10^3/uL (0.0-0.06); HCT 42.8 % (40.0-50.0); HGB 14.8 g/dL (13.5-17.5); Immature Grans % 0.8 %; MCH 34.0 pg (27.0-33.0); MCHC 34.6 % (32.0-36.0); MCV 98 fL (80-95); MPV 9.2 fL (8.0-11.0); Platelet Count 183 10^3/uL (130-400); RBC 4.35 10^6/uL (4.36-5.78); RDW 12.5 % (11.8-14.1); RDW-SD 45.1 fL; WBC 7.72 10^3/uL (4.4-10.8)
[2024-12-14 12:14] LABS: ALT 45 U/L (16-63); AST 23 U/L (15-37); Albumin 3.5 g/dL (3.4-5.0); Alkaline Phosphatase 78 U/L (46-116); Anion Gap 5.8 mmol/L (3-11); BUN 10 mg/dL (7-18); Bilirubin, Total 0.3 mg/dL (0.2-1.0); CO2 29.2 mmol/L (21.0-32.0); Calcium 8.6 mg/dL (8.5-10.1); Chloride 102 mmol/L (98-107); Estimated GFR 86.16 (mL/min/1.73m2); Glucose 234 mg/dL (74-106); Potassium 4.1 mmol/L (3.5-5.1); Sodium 137 mmol/L (136-145); Total Protein 6.7 g/dL (6.4-8.2)
[2024-12-14 12:29] LABS: Uric Acid 3.1 mg/dL (3.5-7.2)
== END 2024-12-14 04:46 | disposition home or self-care (01) ==
LOC: LBO 12-15 04:46
PROVIDERS: PCP Nurse Practitioner Family; Visit Provider Internal Medicine Rheumatology
DX: L40.50 Arthropathic psoriasis, unspecified (principal); Z79.899 Other long term (current) drug therapy; M10.9 Gout, unspecified
CPT/HCPCS: 36415; 80053; 84550; 85025

== ENCOUNTER 2025-02-22 10:52 | Outpatient (CLI) | payer MEDICAID, SELFPAY ==
[2025-02-22 12:16] LABS: Abs Immature Grans 0.03 10^3/uL (0.0-0.06); HCT 43.2 % (40.0-50.0); HGB 14.7 g/dL (13.5-17.5); Immature Grans % 0.4 %; MCH 33.9 pg (27.0-33.0); MCHC 34.0 % (32.0-36.0); MCV 100 fL (80-95); MPV 8.7 fL (8.0-11.0); Platelet Count 205 10^3/uL (130-400); RBC 4.33 10^6/uL (4.36-5.78); RDW 12.4 % (11.8-14.1); RDW-SD 45.8 fL; WBC 6.89 10^3/uL (4.4-10.8)
[2025-02-22 12:34] LABS: Uric Acid 3.8 mg/dL (3.7-9.2)
[2025-02-22 12:37] LABS: ALT 49 U/L (10-49); AST 36 U/L (<34); Albumin 4.3 g/dL (3.2-5.0); Alkaline Phosphatase 74 U/L (46-116); Anion Gap 5.2 mmol/L (3-11); BUN 10 mg/dL (9-23); Bilirubin, Total 0.3 mg/dL (0.2-1.2); CO2 30.8 mmol/L (20.0-31.0); Calcium 9.2 mg/dL (8.3-10.6); Chloride 103 mmol/L (98-107); Glucose 143 mg/dL (74-106); Potassium 4.7 mmol/L (3.5-5.1); Sodium 139 mmol/L (136-145); Total Protein 6.9 g/dL (5.7-8.2)
== END 2025-02-22 10:53 | disposition home or self-care (01) ==
LOC: LBO 10:52
PROVIDERS: PCP Nurse Practitioner Family; Visit Provider Internal Medicine Rheumatology
DX: L40.50 Arthropathic psoriasis, unspecified (principal); Z79.899 Other long term (current) drug therapy; M10.9 Gout, unspecified
CPT/HCPCS: 36415; 80053; 84550; 85025